=== PATIENT | male | born 1980 | race Caucasian/White ===

== ENCOUNTER 2018-01-01 20:06 | Outpatient (REF) | payer MEDICAID, SELFPAY ==
[2018-01-07 03:45] LABS: 2-OH-Ethyl-Flurazepam Negative ng/mL (Cutoff: 100); 7-NH-Clonazepam Negative ng/mL (Cutoff: 100); 7-NH-Flunitrazepam Negative ng/mL (Cutoff: 50); Alpha OH-Alprazolam Negative ng/mL (Cutoff: 100); Alpha-OH-Triazolam Negative ng/mL (Cutoff: 100); Benzodiazepines Interpretation Negative.; Lorazepam Negative ng/mL (Cutoff: 100); Temazepam Negative ng/mL (Cutoff: 100)
== END 2018-01-01 20:26 ==
LOC: NCHCN 20:06
PROVIDERS: PCP Family Medicine; Visit Provider Family Medicine
DX: F11.20 Opioid dependence, uncomplicated (principal)
CPT/HCPCS: 80346

== ENCOUNTER 2018-01-29 13:16 | Outpatient (REF) | payer MEDICAID, SELFPAY ==
[2018-02-01 03:53] LABS: 2-OH-Ethyl-Flurazepam Negative ng/mL (Cutoff: 100); 7-NH-Clonazepam Negative ng/mL (Cutoff: 100); 7-NH-Flunitrazepam Negative ng/mL (Cutoff: 50); Alpha OH-Alprazolam 112 ng/mL (Cutoff: 100); Alpha-OH-Triazolam Negative ng/mL (Cutoff: 100); Benzodiazepines Interpretation Positive.; Lorazepam Negative ng/mL (Cutoff: 100); Temazepam Negative ng/mL (Cutoff: 100)
== END 2018-01-29 13:36 ==
LOC: NCHCN 13:16
PROVIDERS: PCP Family Medicine; Visit Provider Family Medicine
DX: F11.20 Opioid dependence, uncomplicated (principal)
CPT/HCPCS: 80346

== ENCOUNTER 2018-04-02 13:42 | Outpatient (REF) | payer MEDICAID, SELFPAY ==
[2018-04-05 02:07] LABS: 2-OH-Ethyl-Flurazepam Negative ng/mL (Cutoff: 100); 7-NH-Clonazepam Negative ng/mL (Cutoff: 100); 7-NH-Flunitrazepam Negative ng/mL (Cutoff: 50); Alpha OH-Alprazolam Negative ng/mL (Cutoff: 100); Alpha-OH-Triazolam Negative ng/mL (Cutoff: 100); Benzodiazepines Interpretation Negative.; Lorazepam Negative ng/mL (Cutoff: 100); Temazepam Negative ng/mL (Cutoff: 100)
[2018-04-06 07:41] LABS: Amphetamine 401 ng/mL (Cutoff: 25); Amphetamines Interpretation Positive.; MDMA (Ecstasy) Negative ng/mL (Cutoff: 25); Methamphetamine Negative ng/mL (Cutoff: 25); Phentermine Negative ng/mL (Cutoff: 25); Pseudoephedrine/Ephedrine Negative ng/mL (Cutoff: 25)
== END 2018-04-02 14:02 ==
LOC: NCHCN 13:42
PROVIDERS: PCP Family Medicine; Visit Provider Family Medicine
DX: F11.20 Opioid dependence, uncomplicated (principal)
CPT/HCPCS: 80324; 80346

== ENCOUNTER 2018-12-11 15:29 | Inpatient (IN) | payer MEDICAID, SELFPAY ==
[2018-12-11 15:32] VITALS: BP 123/71; PULSE 111; RESP 20; TEMP 37.1; O2SAT 97
--- NOTE | 2018-12-11 15:49 | W.ED.GENAD ---
Discharge Plan Disposition Condition: Stable Discharge Details Chief Complaint: Cellulitis Admit Date/Time: 12/11/18 17:39 Admit Provider: Barrie Napier Attending Provider: Barrie Napier Primary Care Provider: Miguelina Allen ED Provider: Reva Garber Discharge Data Discharge Date/Time-TO BE ENTERED AT DEPARTURE: 12/11/18 18:02 Medical Decision Making <JAMEEL Hansen - Last Filed: 12/14/18 09:36> Patient is a 38-year-old male presenting today with chief complaint of cellulitis. Noted erythema and swelling to the left hand initially had a wound by week and a half ago and his symptoms are greatly progressed. Has been feeling febrile at home prior to arrival. Denies any chest pain or shortness of breath. Patient had streaking to the left axilla and circumferential swelling about the left hand and wrist. He is able to flex and extend all digits against resistance but range of motion is quite limited, this is likely associated with the severity of the swelling. Patient appears nontoxic. He is noted to be tachycardic rate of 111. Plan for labs, imaging and will begin the patient on vancomycin. At the end of my shift, care was transitioned to Dr. Garber labs, imaging pending. Discussed with patient that he will likely need admission for continued antibiotics <Reva Garber MD - Last Filed: 12/11/18 20:14> Julian Rosa is a 38 y/o man with history of opioid use disorder now on Suboxone presenting to the emergency department with right hand pain, redness, swelling, that began 1 week ago, gradually worsening and started on Keflex yesterday, worse since then signed out to me at time of shift change by Laly Stephens with labs, disposition pending. Please see her note for initial H&P. On my assessment, patient is well and nontoxic appearing. There is significant edema and erythema to the palmar and dorsal surface of the left hand extending through the left wrist, with lymphangitic streaking up the arm into the axilla. No crepitus, no skin necrosis. Patient has severe pain with active or passive ranging of the wrist and thumb. Essentially normal range of motion of the second through fifth digits. I have concern for significant cellulitis, possible septic arthritis, possible early sepsis. Doubt necrotizing fasciitis, will obtain x-rays for rule out gas. Awaiting labs, x-rays. Clindamycin ordered by Laly Stephens, concern for MRSA given skin wound over the radial aspect of the left wrist which is likely source of the infection, plan for vancomycin. I discussed patient presentation and my concern for possible septic arthritis with Dr. Jeffers of orthopedic surgery, Dr. Jeffers recommends admission, IV vancomycin, will consult. Patient admitted to Dr. Napier. Clinical Impression: cellulitis Disposition: [facility] inpatient Medical Records Medical records reviewed: Yes I reviewed the patient's medical records. Imaging Data Radiologic Study: Attestation: I personally reviewed and interpreted this imaging study as follows: Radiologist's impression: EXAM DATE/TIME: 12/11/2018 4:11 PM CLINICAL HISTORY: 38 years old, male; Other: Hand cellulitis TECHNIQUE: Imaging protocol: XR Left hand. Views: 3 or more views. COMPARISON: No relevant prior studies available. FINDINGS: Bones/joints: There is no fracture or dislocation. There is no erosive changes. Soft tissues: Soft tissue swelling of the hand. IMPRESSION: Marked soft tissue swelling. No acute bony injury. EXAM DATE/TIME: 12/11/2018 4:11 PM CLINICAL HISTORY: 38 years old, male; Other: Hand cellulitis TECHNIQUE: Imaging protocol: XR Left wrist. Views: 3 or more views. COMPARISON: No relevant prior studies available. FINDINGS: Bones/joints: No fracture or dislocation. No erosive changes. Soft tissues: Soft tissue swelling hand and wrist. IMPRESSION: No acute bony injury. Soft tissue swelling left hand and wrist. Lab Data Lab results reviewed: Yes I reviewed the patient's lab results. 12/11/18 17:04 Blood Blood Culture - Pending 12/11/18 16:35 Blood Blood Culture - Pending 12/11/18 16:05 Hand - Left Wound Culture - Pending 12/11/18 16:05 Hand - Left Gram Stain - Pending Laboratory Tests Range/Units 12/11/18 12/11/18 12/11/18 15:47 16:35 16:35 WBC (4.4-10.8) k/cumm 14.49 H RBC (4.50-6.00) m/cumm 4.41 L Hgb (13.5-17.5) g/dL 14.3 Hct (40.0-50.0) % 41.1 MCV (80-95) fL 93.2 MCH (27.0-33.0) pg 32.4 MCHC (32.0-36.0) g/dL 34.8 RDW (11.8-14.1) % 12.7 Plt Count (130-400) x1000/uL 267 MPV (8.0-11.0) fL 9.8 Immature Gran % 0.3 Neutrophils % 72.1 Lymphocytes % 16.1 Monocytes % 9.6 Eosinophils % 1.7 Basophils % 0.2 Absolute Neutrophils (1.2-6.7) k/cumm 10.45 H Absolute Lymphocytes (1.2-3.4) k/cumm 2.33 Absolute Monocytes (0.11-0.7) k/cumm 1.39 H Absolute Eosinophils (0.0-0.7) k/cumm 0.25 Absolute Basophils (0.0-0.2) k/cumm 0.03 ESR (0-15) mm/hr Sodium (136-145) mmol/L 137 Potassium (3.5-5.1) mmol/L 3.9 Chloride (98-107) mmol/L 99 Carbon Dioxide (21.0-32.0) mmol/L 26.2 Anion Gap (3-11) mmol/L 11.8 H BUN (7-18) mg/dL 12 Creatinine (0.70-1.30) mg/dL 0.98 Estimated GFR/1.73 m2 (mL/min/1.73m2) >= 60.00 Glucose (70-100) mg/dL 80 Lactate (0.6-1.4) mmol/L Calcium (8.5-10.1) mg/dL 8.9 Magnesium Cancelled Total Bilirubin (0.2-1.0) mg/dL 1.0 AST (15-37) U/L 124 H ALT (12-78) U/L 317 H Alkaline Phosphatase (46-116) U/L 149 H Troponin I Cancelled C-Reactive Protein (0.0-0.3) mg/dL Total Protein (6.4-8.2) g/dL 7.7 Albumin (3.4-5.0) g/dL 4.1 Range/Units 08/15/19 08/15/19 08/15/19 16:35 16:35 16:35 WBC (4.4-10.8) k/cumm RBC (4.50-6.00) m/cumm Hgb (13.5-17.5) g/dL Hct (40.0-50.0) % MCV (80-95) fL MCH (27.0-33.0) pg MCHC (32.0-36.0) g/dL RDW (11.8-14.1) % Plt Count (130-400) x1000/uL MPV (8.0-11.0) fL Immature Gran % Neutrophils % Lymphocytes % Monocytes % Eosinophils % Basophils % Absolute Neutrophils (1.2-6.7) k/cumm Absolute Lymphocytes (1.2-3.4) k/cumm Absolute Monocytes (0.11-0.7) k/cumm Absolute Eosinophils (0.0-0.7) k/cumm Absolute Basophils (0.0-0.2) k/cumm ESR (0-15) mm/hr 16 H Sodium (136-145) mmol/L Potassium (3.5-5.1) mmol/L Chloride (98-107) mmol/L Carbon Dioxide (21.0-32.0) mmol/L Anion Gap (3-11) mmol/L BUN (7-18) mg/dL Creatinine (0.70-1.30) mg/dL Estimated GFR/1.73 m2 (mL/min/1.73m2) Glucose (70-100) mg/dL Lactate (0.6-1.4) mmol/L 0.9 Calcium (8.5-10.1) mg/dL Magnesium Total Bilirubin (0.2-1.0) mg/dL AST (15-37) U/L ALT (12-78) U/L Alkaline Phosphatase (46-116) U/L Troponin I C-Reactive Protein (0.0-0.3) mg/dL 3.97 H Total Protein (6.4-8.2) g/dL Albumin (3.4-5.0) g/dL HPI <JAMEEL Hansen - Last Filed: 12/14/18 09:36> General Mode of arrival: ambulatory. Date/Time Provider Initiated Documentation: 12/11/18 15:30. Limitations to Documentation: no limitations. Information obtained by: patient and RN notes reviewed. HPI Narrative: Patient is a 48-year-old [id number] male presents today with chief complaint of left hand erythema and swelling. Reports that approximately a week and a half ago he cut the radial side of his wrist while washing dishes at work. Reports that since that time, he has had a low-level area of erythema. Reports over the past few days has began to progress and was seen by his primary care yesterday at which time he was begun on cephalexin. Reports that he was advised to seek care in the emergency department if symptoms worsen or worsen. Over the past 24 hours, patient has noted the entirety of the hand is become involved. States he has been feeling warm. Noting a red streak moving up his arm. Denies any chest pain, shortness of breath. No recent travel. Has been taking the Keflex as prescribed. Pain is exacerbated with movement, improves with rest. Patient has history of IV drug abuse but reports is been several years since he last used. Related Data Home Medications Medication Instructions Recorded Confirmed aspirin [Aspir 81] 81 mg PO DAILY 04/22/16 12/11/18 gabapentin 300 mg PO BID 04/22/16 12/11/18 trazodone 50 mg PO HS 04/22/16 12/11/18 buprenorphine-naloxone [Suboxone 8 8 mg SUBLINGUAL DAILY film 07/09/16 12/11/18 Mg-2 Mg Sl Film] citalopram [Celexa] 20 mg PO HS tab-cap 07/09/16 12/11/18 melatonin 5 mg PO HS 07/09/16 12/11/18 omeprazole magnesium [Prilosec Otc] 20 mg PO daily PRN 07/09/16 12/11/18 cephalexin 500 mg PO QID 12/11/18 12/11/18 ibuprofen [IBU-200] 400 mg PO Q6H PRN 12/11/18 12/11/18 Allergies Allergy/AdvReac Type Severity Reaction Status Date / Time No Known Allergies Allergy Unverified 12/11/18 15:34 General Stated Complaint: Cellulitis RANJAN: 3 Review of Systems <JAMEEL Hansen - Last Filed: 12/14/18 09:36> Constitutional Reports as per HPI, Reports chills, Reports fatigue, Reports fever(s), Denies headache(s) and Denies weakness ENT Denies headache(s) Cardiovascular Reports as per HPI Respiratory Reports as per HPI and Denies cough Musculoskeletal Reports as per HPI and Denies tingling Integumentary/Breasts Reports as per HPI, Reports erythema, Reports skin pain, Reports skin swelling and Reports wounds Neurologic Reports as per HPI, Denies headache(s), Denies tingling, Denies paresthesias and Denies weakness Endocrine Reports fatigue PFSH <JAMEEL Hansen - Last Filed: 12/14/18 09:36> Medical History Complex regional pain syndrome i of right lower limb (Inactive) 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 Sister No problems noted. Social History (Updated 12/11/18 @ 20:58 by Barrie Napier) Smoking/Tobacco Use Status: Current every day Tobacco Type: cigarettes Alcohol Intake: former Drug use: Current Sobriety Substance use type: marijuana Details: Former IV drug abuser of narcotics. Currently on Suboxone therapy through his primary care provider Do you feel safe at home: Yes Do you feel safe in your relationship?: Yes Exam <JAMEEL Hansen - Last Filed: 12/14/18 09:36> Const General: cooperative, healthy appearing, comfortable, no acute distress, well developed and well groomed Nutritional Appearance: average body habitus and well nourished Orientation: alert and awake Resp Effort & Inspection: normal respiratory effort, able to speak in complete sentences and no respiratory distress Auscultation: clear to auscultation bilaterally, no rales, no rhonchi and no wheezes Cardio Rate: regular rate Rhythm: regular rhythm Heart Sounds: S1 normal, S2 normal, no click, no gallops and no murmurs Skin General skin exam: erythema (To left hand circumferentially, streak to axilla) Wounds: wounds noted (1 cm in circumference superficial wound anterior radial wrist) Neuro General: alert and awake Cognition: normal cognition Speech: speech normal Gait: normal gait Motor: muscle tone normal throughout Sensory Exam: no sensory deficits noted Extrem Left upper extremity: normal capillary refill and wrist (Limited range of motion with extension); abnormal to inspection (Skin changes as noted above with severe swelling circumferentially about th) and ROM limited (Patient is able to flex and extend all digits against resistance) Psych Appearance: grossly normal and well kempt Mental Status: mental status grossly normal Speech and Movement: speech and movement normal Course <JAMEEL Hansen - Last Filed: 12/14/18 09:36> Vital Signs Temperature 37.1 C 12/11/18 15:32 Pulse 111 H 12/11/18 15:32 Respiratory Rate 20 12/11/18 15:32 Blood Pressure 123/71 12/11/18 15:32 Pulse Oximetry 97 12/11/18 15:32 Temperature 37.1 C 12/11/18 15:32 Temperature Source Temporal Artery Scan 12/11/18 15:32 Pulse 111 H 12/11/18 15:32 Respiratory Rate 20 12/11/18 15:32 Blood Pressure 123/71 12/11/18 15:32 Pulse Oximetry 97 12/11/18 15:32 Oxygen Delivery Method Room Air 12/11/18 15:32 Oxygen Flow Rate 0 12/11/18 15:32 Pain Level 7 12/11/18 15:32 Sign Out <JAMEEL Hansen - Last Filed: 12/14/18 09:36> Sign Out Data: Sign Out Comment: Care transitioned to Dr. Garber with labs and imaging pending. Last updated by Laly Stephens PA at 12/11/18 16:18
--- NOTE | 2018-12-11 16:08 | DI.RAD_ITS ---
SYMPTOM/DIAGNOSIS: HAND CELLULITIS LEFT HAND: 12/11 Three views were obtained. There is soft tissue swelling of the hand. No bony abnormality seen.
--- NOTE | 2018-12-11 16:08 | DI.RAD_ITS ---
SYMPTOM/DIAGNOSIS: WRIST CELLULITIS LEFT WRIST: 12/11/18 Three views were obtained. There is soft tissue swelling of the hand and wrist. No underlying bony abnormality seen.
[2018-12-11] MEDS: Normal Saline 1,000 ML 1000 ML IV ×2 (16:25→17:05)
[2018-12-11 16:50] LABS: Abs Immature Grans 0.04 k/cumm (0.0-0.09); Absolute Basophil Count 0.03 k/cumm (0.0-0.2); Absolute Eosinophil Count 0.25 k/cumm (0.0-0.7); Absolute Lymphocyte Count 2.33 k/cumm (1.2-3.4); Absolute Monocyte Count 1.39 k/cumm (0.11-0.7); Absolute Neutrophil Count 10.45 k/cumm (1.2-6.7); Basophils % 0.2; Eosinophils % 1.7; HCT 41.1 % (40.0-50.0); HGB 14.3 g/dL (13.5-17.5); Immature Grans % 0.3; Lymphocytes % 16.1; Mean Corp. HGB Concentration 34.8 g/dL (32.0-36.0); Mean Corpuscular Hemoglobin 32.4 pg (27.0-33.0); Mean Corpuscular Volume 93.2 fL (80-95); Mean Platelet Volume 9.8 fL (8.0-11.0); Monocytes % 9.6; Neutrophils % 72.1; Platelet Count 267 x1000/uL (130-400); RBC 4.41 m/cumm (4.50-6.00); RBC Distribution Width 12.7 % (11.8-14.1); White Blood Cell Count 14.49 k/cumm (4.4-10.8)
[2018-12-11 16:51] LABS: Lactate 0.9 mmol/L (0.6-1.4)
[2018-12-11] MEDS: CLINDAMYCIN 600 MG/50 ML BAG 100 MG IVPB (16:59)
[2018-12-11 17:08] LABS: ALT 317 U/L (12-78); AST 124 U/L (15-37); Albumin 4.1 g/dL (3.4-5.0); Alkaline Phosphatase 149 U/L (46-116); Anion Gap 11.8 mmol/L (3-11); BUN 12 mg/dL (7-18); CO2 26.2 mmol/L (21.0-32.0); CREATININE 0.98 mg/dL (0.70-1.30); Calcium 8.9 mg/dL (8.5-10.1); Chloride 99 mmol/L (98-107); Glucose 80 mg/dL (70-100); Potassium 3.9 mmol/L (3.5-5.1); Sodium 137 mmol/L (136-145); Total Protein 7.7 g/dL (6.4-8.2)
[2018-12-11] MEDS: HYDROmorphone 2 MG/ML VIAL 0.5 MG IVP (17:12)
[2018-12-11 17:24] VITALS: BP 141/85; PULSE 79; RESP 18; TEMP 37.4; O2SAT 100
[2018-12-11] MEDS: VANCOMYCIN 2,000 MG in Normal Saline 500 ML 250 MG IVPB (17:28)
[2018-12-11 17:36] LABS: C-Reactive Protein 3.97 mg/dL (0.0-0.3)
[2018-12-11 17:55] LABS: ESR 16 mm/hr (0-15)
[2018-12-11 18:03] VITALS: BP 141/85; PULSE 79; RESP 18; TEMP 37.4; O2SAT 100
[2018-12-11 18:18] VITALS: BP 150/96; PULSE 88; RESP 20; TEMP 36.7; O2SAT 99
--- NOTE | 2018-12-11 18:22 | DI.VRAD_ITS ---
EXAM: XR Left Hand EXAM DATE/TIME: 12/11/2018 4:11 PM CLINICAL HISTORY: 38 years old, male; Other: Hand cellulitis TECHNIQUE: Imaging protocol: XR Left hand. Views: 3 or more views. COMPARISON: No relevant prior studies available. FINDINGS: Bones/joints: There is no fracture or dislocation. There is no erosive changes. Soft tissues: Soft tissue swelling of the hand. IMPRESSION: Marked soft tissue swelling. No acute bony injury. Dictated and Authenticated by: Belem Allen MD. Ordering:CHERYL Ardon MD
--- NOTE | 2018-12-11 18:23 | DI.VRAD_ITS ---
EXAM: XR Left Wrist EXAM DATE/TIME: 12/11/2018 4:11 PM CLINICAL HISTORY: 38 years old, male; Other: Hand cellulitis TECHNIQUE: Imaging protocol: XR Left wrist. Views: 3 or more views. COMPARISON: No relevant prior studies available. FINDINGS: Bones/joints: No fracture or dislocation. No erosive changes. Soft tissues: Soft tissue swelling hand and wrist. IMPRESSION: No acute bony injury. Soft tissue swelling left hand and wrist. Dictated and Authenticated by: Belem Allen MD. Ordering:CHERYL Ardon MD
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
[2018-12-11] MEDS: CEFEPIME 2 GM in Normal Saline 100 ML IVPB (21:12)
[2018-12-11] MEDS: Normal Saline Flush 10 ML SYR IVP ×2 (21:12→21:28)
[2018-12-11] MEDS: Ketorolac 15 MG/ML VIAL IVP (21:28)
[2018-12-11] MEDS: Citalopram 20 MG TAB PO (22:23)
[2018-12-11] MEDS: Melatonin 3 MG TAB 6 MG PO (22:23)
[2018-12-11] MEDS: traZODone 50 MG TAB PO (22:23)
[2018-12-11] MEDS: Acetaminophen 325 MG TAB PO (22:23)
[2018-12-11 23:39] VITALS: BP 108/70; PULSE 90; RESP 16; TEMP 37.1; O2SAT 98
[2018-12-12] VITALS (11 sets, daily range): BP systolic 74–155; BP diastolic 31–71; PULSE 60–80; RESP 12–18; TEMP 36–37.2; O2SAT 95–98
[2018-12-12] MEDS: HYDROmorphone 2 MG/ML VIAL 1 MG IVP (00:02)
[2018-12-12] MEDS: Normal Saline 50 ML 200 ML (00:03)
[2018-12-12] MEDS: traMADol 50 MG TAB 100 MG PO ×2 (00:03→06:19)
[2018-12-12] MEDS: VANCOMYCIN 1,000 MG in Normal Saline 250 ML 250 MG IV (01:47)
[2018-12-12] MEDS: CEFEPIME 2 GM in Normal Saline 100 ML IVPB ×2 (03:30→12:34)
--- NOTE | 2018-12-12 03:49 | NUR.NOTE ---
Nursing Note: At approximately 2200, Patient rang call albert requesting to be disconnected from IV and that he was going to leave AMA and go to [facility] because he feels his pain is not being managed, he would rather sit at home in pain or go to another hospital where he would receive pain medication. Patient is upset and crying at this point grasping his arm and diaphoretic. Patient states he was told he only came here for drugs and feels like he is being stereotyped due his previous drug history. Patient is open about saying he has been clean for 12 years and does not understand why he is not getting anything more for pain. REYES Celestin came in the room as well to talk to patient. Patient became agreeable to plan of taking what was available and if no relief we would contact the doctor. Pain wass ultimately managed around 0000.
[2018-12-12] MEDS: Ketorolac 15 MG/ML VIAL IVP (06:19)
--- NOTE | 2018-12-12 07:49 | INITIAL_ITS ---
- If Service Date Differs Date of service: 12/12/18 Time of Service: 07:49 Care Management Initial Assess REASON FOR HOSPITALIZATION:: Septic arthritis of left wrist PAST MEDICAL HISTORY/PAST SURGICAL HISTORY:: Medical History: Complex regional pain syndrome i of right lower limb (Inactive). 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 Surgical History: Excision, Lesion (02/10/16) PREVIOUS FUNCTIONAL STATUS/SOCIAL/FAMILY SUPPORTS:: Adrian lives alone in a single family home in [facility]. He has an eleven year old son that is very important to him. 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 He is independent with all care and activities. CURRENT FUNCTIONAL STATUS:: Adrian was sitting up in bed with his left hand and arm wrapped and elevated on pillows. He had surgery this morning on his left wrist which is infected. Adrian stated that he intends to leave by 3pm since he has his son this weekend and does not want to miss any time with him. ADVANCE DIRECTIVES:: none on file at [facility] Has patient been provided with information about the portal?: No Did the patient sign up for the portal?: No CODE STATUS:: Full Code INSURANCE COVERAGE / FINANCIAL ISSUES:: Medicaid CURRENT HOME/COMMUNITY SERVICES/EQUIPMENT:: none PRIMARY CARE PHYSICIAN:: Miguelina Allen POTENTIAL DISCHARGE NEEDS:: IV AB PATIENT/FAMILY EDUCATION NEEDS:: Discharge plan, limitations, follow up plan, Ask Me Three TRANSPORTATION:: via bicycle which he has in his room with him PLAN:: Adrian is receiving IV antibiotics for septic arthritis in his left wrist. Ideally he would require 6 weeks of IV AB but is refusing to stay in the hospital. Although he intends to sign out AMA, arrangements have been made for him to come to the infusion center to complete treatment. He will follow up with his PCP and discharge plan of care.
[2018-12-12] MEDS: Bupivacaine 0.5% Pres-Free 30 ML VIAL (07:51)
[2018-12-12] MEDS: Bupivacaine LIPOSOME/PF 133 MG/10 ML VIAL IJ (07:51)
[2018-12-12 09:45] LABS: Abs Immature Grans 0.02 k/cumm (0.0-0.09); Absolute Basophil Count 0.02 k/cumm (0.0-0.2); Absolute Eosinophil Count 0.22 k/cumm (0.0-0.7); Absolute Lymphocyte Count 1.21 k/cumm (1.2-3.4); Absolute Monocyte Count 0.75 k/cumm (0.11-0.7); Basophils % 0.2; Eosinophils % 2.4; HCT 36.7 % (40.0-50.0); HGB 12.3 g/dL (13.5-17.5); Immature Grans % 0.2; Lymphocytes % 13.1; Mean Corp. HGB Concentration 33.5 g/dL (32.0-36.0); Mean Corpuscular Hemoglobin 32.1 pg (27.0-33.0); Mean Corpuscular Volume 95.8 fL (80-95); Monocytes % 8.1; Platelet Count 213 x1000/uL (130-400); RBC 3.83 m/cumm (4.50-6.00); RBC Distribution Width 12.9 % (11.8-14.1); White Blood Cell Count 9.22 k/cumm (4.4-10.8)
[2018-12-12 09:56] LABS: Absolute Neutrophil Count 7.01 k/cumm (1.2-6.7)
[2018-12-12 09:59] LABS: ALT 224 U/L (12-78); AST 92 U/L (15-37); Albumin 2.8 g/dL (3.4-5.0); Alkaline Phosphatase 111 U/L (46-116); Anion Gap 6.7 mmol/L (3-11); BUN 12 mg/dL (7-18); Bilirubin, Total 0.6 mg/dL (0.2-1.0); C-Reactive Protein 5.64 mg/dL (0.0-0.3); CO2 25.3 mmol/L (21.0-32.0); CREATININE 0.96 mg/dL (0.70-1.30); Calcium 7.8 mg/dL (8.5-10.1); Chloride 108 mmol/L (98-107); Creatine Kinase 40 U/L (39-308); Glucose 100 mg/dL (70-100); Potassium 4.3 mmol/L (3.5-5.1); Sodium 140 mmol/L (136-145); Total Protein 5.7 g/dL (6.4-8.2)
[2018-12-12] MEDS: Lactated Ringers 1,000 ML 30 ML IV (10:00)
[2018-12-12] MEDS: Normal Saline 1,000 ML 150 ML IV ×2 (11:19)
--- NOTE | 2018-12-12 11:42 | ROE_ITS ---
DATE OF PROCEDURE: December 12, 2018 PREOPERATIVE DIAGNOSIS: Septic arthritis left wrist. POSTOPERATIVE DIAGNOSIS: Septic arthritis left wrist. PROCEDURE: Arthrotomy left wrist with irrigation and debridement of the wrist. ANESTHESIA: General, supplemented with a left cervical block, Maurilio Rowan CRNA SURGEON: Reinaldo Jeffers M.D. INDICATIONS: This is a 38-year-old white male who went to the Emergency Room yesterday with increasi ng swelling, erythema and pain in his left hand and wrist over the course of the last week to two wee ks. He was thought to have a septic arthritis of his wrist. I was consulted and performed an aspira tion of his left wrist. I aspirated 2 cc's of anne pus, confirming the diagnosis of a septic arthri tis. The patient was started on IV antibiotics and I recommended formal incision and drainage of his wrist as optimum treatment of the infection. The risks and complications of the procedure were expl ained to the patient in detail preoperatively. Because of his poor veins and because he is on chroni c Suboxone therapy, it was felt that he would benefit from a cervical block for postop pain. PROCEDURE: The patient was taken to the Operating Room on 12/12/18. He was placed supine on the oper ating table and a general anesthetic was administered. A cervical block was then performed. A proxi mal tourniquet was applied to the left upper extremity and the left hand, wrist and forearm were prep ped and draped free in the usual sterile fashion. The left upper extremity was exsanguinated by elev ation for a minute and the tourniquet was inflated to 325 mmHg. A longitudinal incision was made on the dorsum of the left wrist between the third and fourth extenso r compartments. The incision was carried down through the subcu. The extensor pollicis longus tendo n was identified and retracted radially. The common extensor tendons in the fourth compartment were retracted ulnarward. I incised the dorsal capsule and anne pus poured out of the wrist joint. Hype rtrophic synovium on the dorsum of the wrist were removed with a rongeur down to healthy tissue. The wrist joint was then copiously irrigated with saline solution and then irrigated with Betadine and s ivy solution until there was no more purulent material and the tissues looked clean. I left the wr ist capsule joint open, put a Rosalind drain in the depths of the wound and tucked it in radial to the scaphoid. I then simply approximated the skin edges with interrupted #3-0 nylon sutures. Because of the large amount of swelling and erythema on the dorsum of the hand, I needed to make sure that there weren't more pockets of purulent material. I planned on making a longitudinal incision b etween the index and middle metacarpals and the little and ring finger metacarpals. I made the first incision between the little and ring finger metacarpals; the incision was about 2.5 inches in length . I incised through the skin. The extensor tendons were identified. There was only clear fluid daniel t poured out of the wound. By milking the dorsum of the dorsum of the hand in an ulnar direction, I was able to push out a large amount of tissue fluid. I felt that this was simply reactive fluid and not anne infection. I didn't feel I needed to make another incision on the dorsum of the hand. I i rrigated that wound with saline solution and approximated the skin edges with interrupted #3-0 nylon sutures. The incisions were dressed with Xeroform gauze, sterile gauze 4x4's and wrapped with a 2-in ch Cling bandage. I then made a large compressive dressing with fluff gauze 4x4's between the finger s and wrapped with a Kerlix bandage. I applied a volar fiberglass splint, held in place with a 3-in ch ALICIA bandage. The tourniquet was released. There was immediate visible circulation to the fingers . The patient's general anesthesia was reversed without complication. Estimated blood loss was < 10 cc's. The patient was discharged to the recovery room in good condition.
[2018-12-12] MEDS: Gabapentin 300 MG CAP PO (12:33)
[2018-12-12] MEDS: Ketorolac 30 MG/ML VIAL IVP (12:33)
[2018-12-12] MEDS: Omeprazole 20 MG CAPCR PO (12:33)
[2018-12-12] MEDS: Normal Saline Flush 10 ML SYR IVP ×2 (12:35→14:47)
[2018-12-12] MEDS: Buprenorphine/Naloxone 8 mg/2 mg FILM 1 EACH SL (13:15)
--- NOTE | 2018-12-12 15:33 | NUR.NOTE ---
Nursing Note: 1500- pt left AMA with belongings and bicycle. pt agreed to come back to infusion for antibiotic treatment at 1600.
--- NOTE | 2018-12-12 15:42 | PDOC.CMDIS ---
- If Service Date Differs Date of service: 12/12/18 Time of Service: 15:43 LACE Index Scoring Tool - Questions: Length of Stay (in days): 1 Acuity (Admit via E.D.?): Yes E.D. Visits: 1 - Answers: Total Score: 5 Risk of Readmission: Low Risk Care Management Discharge Reason for Hospitalization: Septic arthritis of left wrist Discharge Plan: Adrian received IV antibiotics for septic arthritis in his left wrist. Ideally he would require 6 weeks of IV AB but is refusing to stay in the hospital. Although he intends to sign out AMA, arrangements have been made for him to come to the infusion center to complete treatment. He will follow up with his PCP and discharge plan of care.He will ride his bicycle home. Patient/Family Education Needs: Discharge plan, limitations, follow up plan, Ask Me Three Services Needed at Discharge: Infusion Therapy
--- NOTE | 2018-12-12 16:20 | W.PM.DS.N ---
Date of service: 12/12/18 Time of Service: 16:21 DS: Diagnosis Discharge Diagnosis (1) Septic arthritis of wrist, left: Status: Acute (2) Elevated transaminase level: Status: Acute Discharge Plan Disposition Patient Disposition: AGAINST MEDICAL ADVICE Condition: Stable Discharge Details Chief Complaint: Cellulitis Reason For Visit: LEFT ARM CELLULITIS Admit Date/Time: 12/11/18 17:39 Admit Provider: Barrie Napier Attending Provider: Barrie Napier Primary Care Provider: Miguelina Allen ED Provider: Reva Garber Hospital Course Hospital Course: Mr Rosa is a 38 year old male who unfortunately left AMA today after a brief admission to [facility] on 12/11/18 for septic arthritis of L wrist. He did undergo arthrocenthesis by Dr Jeffers on 12/11/18, which was suggestive of septic arthritis, was initiated on vancomycin/cefepime empirically and admitted to hospitalist service. He underwent an arthrotomy of the Left wrist with irrigation and debridement of the wrist by Dr Jeffers on 12/12/18. Before culture results were available, the patient left AMA. He had a midline placed during his surgery into his RUE. Because the patient agrees to follow up with the infusion center, we have changed his antibiotics to daily daptomycin/ceftriaxone. I have made contact with Dr Fuentes who is insulation batting machine operator for Dr Allen and either he or Dr Allen will follow the culture results in the outpatient setting, changing antibiotics as appropriate. The patient verbalized understanding that untreated septic wrist could lead to loss of hand and possibly and chose to leave AMA regardless. Home Meds and New Rx's Prescriptions: No Action citalopram [Celexa] 20 MG tablet 20 mg PO HS RF: 0 Prilosec OTC 20 MG tablet,delayed release (DR/EC) 20 mg PO daily PRN RF: 0 melatonin 5 MG tablet 5 mg PO HS RF: 0 buprenorphine-naloxone [Suboxone] 1 EACH film 8 mg Sublingual DAILY RF: 0 trazodone 50 MG tablet 50 mg PO HS RF: 0 aspirin [Aspir-81] 81 MG tablet,delayed release (DR/EC) 81 mg PO DAILY RF: 0 gabapentin 300 MG capsule 300 mg PO BID RF: 0 cephalexin 500 mg Capsule 500 mg PO QID RF: 0 ibuprofen [IBU-200] 200 mg Tablet 400 mg PO Q6H PRNRF: 0 Discharge Instructions Referrals: Reinaldo Jeffers MD [ [facility] STAFF PHYSICIAN] - Royer Fuentes [ [facility] STAFF PHYSICIAN] - Discharge Data Discharge Date/Time-TO BE ENTERED AT DEPARTURE: 12/12/18 15:00 Exam Narrative Exam Narrative: General: middle-aged male, appears mildly anxious, older than his stated age, A&Ox3 HEENT: EOMI, MMM Heart: RRR, no m/r/g Lungs: CTAB GI: abdomen is soft, nontender, nondistended Extremities: LUE dressed, c/d/i; no e/c/c BLE's DS: Data Vitals/I&O Vitals and I&O: Vital Signs Temperature 36.5 C 12/12/18 13:04 Temperature Source Tympanic 12/12/18 13:04 Pulse 73 12/12/18 13:04 Pulse Rhythm Regular 12/12/18 07:30 Respiratory Rate 18 12/12/18 13:04 Respiratory Effort Non-Labored 12/12/18 07:30 Respiratory Depth Normal 12/12/18 07:30 Respiratory Pattern Normal 12/12/18 07:30 Blood Pressure 155/66 H 12/12/18 13:04 Pulse Oximetry 96 12/12/18 13:04 Respiratory End-tidal CO2 28 12/12/18 10:15 Oxygen Delivery Method Room Air 12/12/18 13:04 Oxygen Flow Rate 0 12/12/18 13:04 Pain Level 5 12/12/18 13:04 Intake & Output 12/11/18 12/12/18 12/12/18 23:59 11:59 23:59 Intake Total 2660 / 2660 1350 / 1350 Output Total Balance 2660 / 2660 1340 / 1340 Weight 66.224 kg 67.1 kg Intake: IV 2660 / 2660 1350 / 1350 Output: Estimated Blood Loss Other: Comment Patient voided independantly, refused hat pt voided independently Emesis Description None Voiding Methods Toilet Completed studies during hospitalization [Text1]: XR L hand/wrist: Three views were obtained. There is soft tissue swelling of the hand. No bony abnormality seen. Pending studies at discharge: blood and arthrocenthesis culture results Labs on day of discharge: Labs from last 24 hours 12/12/18 12/12/18 12/12/18 09:14 09:14 09:14 WBC 9.22 D RBC 3.83 L Hgb 12.3 L Hct 36.7 L MCV 95.8 H MCH 32.1 MCHC 33.5 RDW 12.9 Plt Count 213 MPV 10.0 Immature Gran % 0.2 Neutrophils % 76.0 Lymphocytes % 13.1 Monocytes % 8.1 Eosinophils % 2.4 Basophils % 0.2 Absolute Neutrophils 7.01 H Absolute Lymphocytes 1.21 Absolute Monocytes 0.75 H Absolute Eosinophils 0.22 Absolute Basophils 0.02 ESR Sodium 140 Potassium 4.3 Chloride 108 H Carbon Dioxide 25.3 Anion Gap 6.7 BUN 12 Creatinine 0.96 Estimated GFR/1.73 m2 >= 60.00 Glucose 100 Lactate Calcium 7.8 L Total Bilirubin 0.6 AST 92 H ALT 224 H Alkaline Phosphatase 111 Creatine Kinase 40 C-Reactive Protein 5.64 H Total Protein 5.7 L Albumin 2.8 L Hepatitis A IgM Ab Pending Hep Bs Antigen Pending Hep B Core Total Ab Pending Hepatitis C Antibody Pending 12/11/18 12/11/18 12/11/18 16:35 16:35 16:35 WBC RBC Hgb Hct MCV MCH MCHC RDW Plt Count MPV Immature Gran % Neutrophils % Lymphocytes % Monocytes % Eosinophils % Basophils % Absolute Neutrophils Absolute Lymphocytes Absolute Monocytes Absolute Eosinophils Absolute Basophils ESR 16 H Sodium Potassium Chloride Carbon Dioxide Anion Gap BUN Creatinine Estimated GFR/1.73 m2 Glucose Lactate 0.9 Calcium Total Bilirubin AST ALT Alkaline Phosphatase Creatine Kinase C-Reactive Protein 3.97 H Total Protein Albumin Hepatitis A IgM Ab Hep Bs Antigen Hep B Core Total Ab Hepatitis C Antibody 12/11/18 12/11/18 16:35 16:35 WBC 14.49 H RBC 4.41 L Hgb 14.3 Hct 41.1 MCV 93.2 MCH 32.4 MCHC 34.8 RDW 12.7 Plt Count 267 MPV 9.8 Immature Gran % 0.3 Neutrophils % 72.1 Lymphocytes % 16.1 Monocytes % 9.6 Eosinophils % 1.7 Basophils % 0.2 Absolute Neutrophils 10.45 H Absolute Lymphocytes 2.33 Absolute Monocytes 1.39 H Absolute Eosinophils 0.25 Absolute Basophils 0.03 ESR Sodium 137 Potassium 3.9 Chloride 99 Carbon Dioxide 26.2 Anion Gap 11.8 H BUN 12 Creatinine 0.98 Estimated GFR/1.73 m2 >= 60.00 Glucose 80 Lactate Calcium 8.9 Total Bilirubin 1.0 AST 124 H ALT 317 H Alkaline Phosphatase 149 H Creatine Kinase C-Reactive Protein Total Protein 7.7 Albumin 4.1 Hepatitis A IgM Ab Hep Bs Antigen Hep B Core Total Ab Hepatitis C Antibody 12/11/18 17:04 Blood Blood Culture - Pending 12/11/18 16:35 Blood Blood Culture - Pending Preliminary micro results at discharge 12/11/18 19:44 Body Fluid Culture - Preliminary Bursa 12/11/18 16:05 Wound Culture - Preliminary Hand - Left 12/11/18 17:04 Blood Culture - Pending Blood 12/11/18 16:35 Blood Culture - Pending Blood [facility] Medical History Complex regional pain syndrome i of right lower limb (Inactive) 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 Sister No problems noted. Social History (Updated 12/11/18 @ 20:58 by Barrie Napier) Smoking/Tobacco Use Status: Current every day Tobacco Type: cigarettes Alcohol Intake: former Drug use: Current Sobriety Substance use type: marijuana Details: Former IV drug abuser of narcotics. Currently on Suboxone therapy through his primary care provider Do you feel safe at home: Yes Do you feel safe in your relationship?: Yes
[2018-12-15 10:56] LABS: Hepatitis A Antibody IgM Negative (NEGAT); Hepatitis B Core Antibody Negative (NEGAT); Hepatitis B surface Ag Negative (NEGAT); Hepatitis C Ab w Rflx HCV PCR Reactive (NEGAT)
== END 2018-12-12 15:00 | disposition left against medical advice (07) | DRG 513 ==
LOC: ER 17:54 → MS 12-12 05:29
PROVIDERS: Orthopaedic Surgery; Physician Assistant; Admitting Provider Internal Medicine; Emergency Provider Student in an Organized Health Care Education/Training Program; PCP Family Medicine; Visit Provider Internal Medicine
PROC: 0RBP0ZZ Excision of Left Wrist Joint, Open Approach (ICD-10-PCS; CPT 25105; principal; 2018-12-12 07:30)
DX: M00.232 Other streptococcal arthritis, left wrist (principal); F11.20 Opioid dependence, uncomplicated; L03.114 Cellulitis of left upper limb; B95.4 Other streptococcus as the cause of diseases classified elsewhere; R74.0 Nonspecific elevation of levels of transaminase and lactic acid dehydrogenase [LDH]; G89.18 Other acute postprocedural pain; Z53.21 Procedure and treatment not carried out due to patient leaving prior to being seen by health care provider; F17.210 Nicotine dependence, cigarettes, uncomplicated; F12.10 Cannabis abuse, uncomplicated
CPT/HCPCS: 25105; 10140; 36415; 80053; 82550; 85652; 86704; 86709; 86803; 87040; 87077; 87340; 96361; 96365; 96367; 96375; 99223; 99238; 99285; 73110; 73130; 83605; 83735; 84484; 85025; 86140; 87070; 87186; 87205; 87522; J1100; J1885; J2250; J2405; L3650

== ENCOUNTER 2018-12-27 02:12 | Outpatient (RCR) | payer MEDICAID, SELFPAY ==
[2018-12-12] MEDS: cefTRIAXone 2 GM/50 ML BAG IVPB (16:38)
[2018-12-12] MEDS: Normal Saline Flush 10 ML SYR IVP ×2 (16:38→17:35)
[2018-12-12 16:39] VITALS: BP 134/66; PULSE 77; RESP 18; TEMP 36.7; O2SAT 97
[2018-12-13] MEDS: Normal Saline Flush 10 ML SYR IVP (14:40)
[2018-12-13] MEDS: cefTRIAXone 2 GM/50 ML BAG IVPB (14:40)
[2018-12-14] MEDS: cefTRIAXone 2 GM/50 ML BAG IVPB (13:52)
[2018-12-14] MEDS: Normal Saline Flush 10 ML SYR IVP (13:52)
[2018-12-15] MEDS: cefTRIAXone 2 GM/50 ML BAG IVPB (12:30)
[2018-12-15] MEDS: Normal Saline Flush 10 ML SYR IVP (12:35)
[2018-12-16] MEDS: cefTRIAXone 2 GM/50 ML BAG IVPB (13:40)
[2018-12-16] MEDS: Normal Saline Flush 10 ML SYR IVP (13:46)
[2018-12-17] MEDS: Normal Saline Flush 10 ML SYR IVP (09:01)
[2018-12-17] MEDS: cefTRIAXone 2 GM/50 ML BAG IVPB (09:01)
[2018-12-18] MEDS: cefTRIAXone 2 GM/50 ML BAG IVPB (10:43)
[2018-12-18] MEDS: Normal Saline Flush 10 ML SYR IVP (10:44)
[2018-12-19] MEDS: cefTRIAXone 2 GM/50 ML BAG IVPB (11:45)
[2018-12-19] MEDS: Normal Saline Flush 10 ML SYR IVP (11:48)
[2018-12-21] MEDS: cefTRIAXone 2 GM/50 ML BAG IVPB (13:19)
[2018-12-21] MEDS: Normal Saline Flush 10 ML SYR IVP (13:20)
[2018-12-22] MEDS: cefTRIAXone 2 GM/50 ML BAG IVPB (14:01)
[2018-12-22] MEDS: Normal Saline Flush 10 ML SYR IVP (14:02)
[2018-12-23] MEDS: cefTRIAXone 2 GM/50 ML BAG IVPB (14:20)
[2018-12-23] MEDS: Normal Saline Flush 10 ML SYR IVP (14:59)
[2018-12-24] MEDS: cefTRIAXone 2 GM/50 ML BAG IVPB (14:14)
[2018-12-24] MEDS: Normal Saline Flush 10 ML SYR IVP (14:15)
[2018-12-25] MEDS: cefTRIAXone 2 GM/50 ML BAG IVPB (11:00)
[2018-12-25] MEDS: Normal Saline Flush 10 ML SYR IVP (11:05)
[2018-12-26] MEDS: cefTRIAXone 2 GM/50 ML BAG IVPB (12:55)
[2018-12-26] MEDS: Normal Saline Flush 10 ML SYR IVP (12:56)
== END 2018-12-27 23:59 | disposition home or self-care (01) ==
LOC: INF 02:12
PROVIDERS: PCP Family Medicine; Visit Provider Internal Medicine
DX: M00.232 Other streptococcal arthritis, left wrist (principal); F11.20 Opioid dependence, uncomplicated; L03.114 Cellulitis of left upper limb; B95.4 Other streptococcus as the cause of diseases classified elsewhere
CPT/HCPCS: 96365; 96372; J0878

== ENCOUNTER 2018-12-30 00:47 | Outpatient (RCR) | payer MEDICAID, SELFPAY ==
[2018-12-28] MEDS: cefTRIAXone 2 GM/50 ML BAG IVPB (14:17)
[2018-12-28] MEDS: Normal Saline Flush 10 ML SYR IVP (14:18)
[2018-12-30] MEDS: cefTRIAXone 2 GM/50 ML BAG IVPB (14:12)
[2018-12-30] MEDS: Normal Saline Flush 10 ML SYR IVP (14:12)
== END 2019-01-26 23:59 | disposition home or self-care (01) ==
LOC: INF 00:47
PROVIDERS: PCP Family Medicine; Visit Provider Internal Medicine
DX: M00.232 Other streptococcal arthritis, left wrist (principal); L03.114 Cellulitis of left upper limb; B95.4 Other streptococcus as the cause of diseases classified elsewhere
CPT/HCPCS: 96365

== ENCOUNTER 2018-12-31 15:15 | Outpatient (REF) | payer MEDICAID, SELFPAY ==
[2019-01-03 17:10] LABS: Gabapentin, Urine Negative
[2019-01-04 05:17] LABS: Codeine Negative ng/mL (Cutoff: 25); Dihydrocodeine Negative ng/mL (Cutoff: 25); Hydrocodone Negative ng/mL (Cutoff: 25); Hydromorphone Negative ng/mL (Cutoff: 25); Morphine Negative ng/mL (Cutoff: 25); Naloxone 125 ng/mL (Cutoff: 25); Norhydrocodone Negative ng/mL (Cutoff: 25); Noroxycodone Negative ng/mL (Cutoff: 25); Noroxymorphone Negative ng/mL (Cutoff: 25); Opiates Interpretation Positive.
[2019-01-05 20:47] LABS: Norbuprenorphine 171.1 ng/mL
== END 2018-12-31 15:35 ==
LOC: NCHCN 15:15
PROVIDERS: PCP Family Medicine; Visit Provider Family Medicine
DX: F11.20 Opioid dependence, uncomplicated (principal)
CPT/HCPCS: 80307; 80361

== ENCOUNTER 2019-01-14 19:51 | Outpatient (REF) | payer MEDICAID, SELFPAY ==
[2019-01-17 16:37] LABS: Gabapentin, Urine 14.6 ug/mL
== END 2019-01-14 20:11 ==
LOC: NCHCN 19:51
PROVIDERS: PCP Family Medicine; Visit Provider Family Medicine
DX: F11.20 Opioid dependence, uncomplicated (principal)
CPT/HCPCS: 80307

== ENCOUNTER 2019-06-12 20:19 | Emergency (ER) | payer MEDICAID, SELFPAY ==
[2019-06-12 20:18] VITALS: BP 131/90; PULSE 91; RESP 16; TEMP 37.1; O2SAT 96
--- NOTE | 2019-06-12 20:27 | W.ED.GENAD ---
Discharge Plan Disposition Patient Disposition: HOME Condition: Stable Discharge Details Chief Complaint: Laceration Clinical Impression: Laceration of eyebrow, left Primary Care Provider: Miguelina Allen ED Provider: Annie Raymundo Home Meds and New Rx's Prescriptions: Continued citalopram [Celexa] 20 MG tablet 20 mg PO HS RF: 0 Prilosec OTC 20 MG tablet,delayed release (DR/EC) 20 mg PO daily PRN RF: 0 melatonin 5 MG tablet 5 mg PO HS RF: 0 buprenorphine-naloxone [Suboxone] 1 EACH film 8 mg Sublingual BID RF: 0 trazodone 50 MG tablet 50 mg PO HS RF: 0 aspirin [Aspir-81] 81 MG tablet,delayed release (DR/EC) 81 mg PO DAILY RF: 0 gabapentin 300 MG capsule 300 mg PO BID RF: 0 cephalexin 500 mg Capsule 500 mg PO QID RF: 0 ibuprofen [IBU-200] 200 mg Tablet 400 mg PO Q6H PRNRF: 0 Discharge Instructions Instructions: Facial Laceration (ED) Additional Instructions: Follow up with primary care provider in 3-5 days. Return to ED sooner if any worsening or concerns. Increase oral fluids. Please take Tylenol or Ibuprofen with food every 4-6 hours as needed for pain and swelling. Do not pick or scrub at glue, it will fall off on its own within 4 to 6 days. Return or be seen sooner for any signs of infection, redness, swelling red streaks or signs of infection. Also return for any signs of head injury nausea, vomiting confusion or worsening headache. Referrals: Miguelina Allen MD [Primary Care Provider] - Medical Decision Making 38-year-old male presents with left eyebrow laceration after trip and fall onto ice. Denies LOC. He is alert and oriented x4 upon arrival. He is not on any blood thinners. No nausea or blurry vision. He reports being up-to-date on his tetanus vaccination. Laceration was cleaned with chlorhexidine, and closed with skin adhesive, wound well approximated bleeding controlled. Instructed patient on home care verbalized understanding. HPI General Mode of arrival: EMS. Date/Time Provider Initiated Documentation: 06/12/19 20:27. Limitations to Documentation: no limitations. Information obtained by: patient. HPI Narrative: 38-year-old male presents with a left eyelid laceration after a trip and fall onto the ice. He denies any LOC, no nausea vomiting. No blurry vision. He does have a 1 cm laceration noted to his left eyebrow. There is mild amount of active bleeding. He reports being up-to-date with tetanus shot. No other complaints, no neck pain or back pain. He is alert and oriented x4 upon arrival. Related Data Home Medications Medication Instructions Recorded Confirmed aspirin [Aspir-81] 81 mg PO DAILY 04/22/16 12/16/18 gabapentin 300 mg PO BID 04/22/16 12/16/18 trazodone 50 mg PO HS 04/22/16 12/16/18 Prilosec OTC 20 mg PO daily PRN 07/09/16 12/16/18 buprenorphine-naloxone [Suboxone] 8 mg SUBLINGUAL BID film 07/09/16 06/12/19 citalopram [Celexa] 20 mg PO HS tab-cap 07/09/16 12/16/18 melatonin 5 mg PO HS 07/09/16 12/16/18 cephalexin 500 mg PO QID 12/11/18 12/16/18 ibuprofen [IBU-200] 400 mg PO Q6H PRN 12/11/18 12/16/18 Allergies Allergy/AdvReac Type Severity Reaction Status Date / Time No Known Allergies Allergy Unverified 12/16/18 08:55 General Stated Complaint: Laceration RANJAN: 4 Review of Systems Narrative: Constitutional: Negative for weight loss, alert and oriented, normal body habitus, appears comfortable. HEENT: Denies headaches, blurry vision, nasal discharge, sore throat, trouble swallowing. Laceration noted to his left upper eyebrow. Chest: Denies chest pain, palpitations, irregular rhythm, hypertension. Respiratory: Denies Shortness of breath, cough, hemoptysis. GI: Denies abdominal pain, nausea, vomiting, diarrhea, constipation. : Denies dysuria, hematuria, flank pain, rectal bleeding. Neuro: Denies dizziness, blurry vision, weakness, syncope, headache or facial numbness. Hematologic: Denies easy bruising, intolerance to heat or cold, hair loss. [facility] Family History (Updated 12/11/18 @ 21:00 by Barrie Napier) Father Lung cancer Alcoholism Mother No problems noted. Sister No problems noted. Social History (Updated 12/11/18 @ 20:58 by Barrie Napier) Smoking/Tobacco Use Status: Current every day Tobacco Type: cigarettes Alcohol Intake: former Drug use: Current Sobriety Substance use type: marijuana Details: Former IV drug abuser of narcotics. Currently on Suboxone therapy through his primary care provider Do you feel safe at home: Yes Do you feel safe in your relationship?: Yes Exam Narrative Exam Narrative: Constitutional: Allert and oriented x3. Appears stated age. Normal body habitus. Head: Normocephalic, laceration noted to his left eyebrow. Approximately 1 cm in length. No underlying bony abnormality palpated, no crepitus or step-offs.. Eyes: Pupils PERRLA, Red reflex noted, EOM's intact. Eyelids symmetrical withour lesions, discharge, or swelling. ENT: Bilateral TM's WNL, External ear normal to inspection, no mastoid TTP, swelling, or erythema, Nasal turbinates WNL, no nasal discharge. Normal dentition, Posterior pharynx WNL, no exudate. Chest: RRR, Normal S1, S2, distal pulses intact. Resp: Lungs clear to auscultation bilaterally, no wheezes, rales, or rhonchi. Musculoskeletal: Normal gait, 5/5 strength to all four extremities. Skin: No suspicious rashes or lesions. Capillary refill ?2 sec. Neurologic: Cranial nerves II-XII intact. Alert and oriented x 3. DTR's intact. Hematologic/Lymphatic: No ecchymosis, no lymphadenopathy. Course Vital Signs Vital signs: Vital Signs Temperature 37.1 C 06/12/19 20:18 Pulse 91 H 06/12/19 20:18 Respiratory Rate 16 06/12/19 20:18 Blood Pressure 131/90 06/12/19 20:18 Pulse Oximetry 96 06/12/19 20:18 Temperature 37.1 C 06/12/19 20:18 Temperature Source Skin 06/12/19 20:18 Pulse 91 H 06/12/19 20:18 Respiratory Rate 16 06/12/19 20:18 Respiratory Effort 06/12/19 20:22 Blood Pressure 131/90 06/12/19 20:18 Blood Pressure Position Supine 06/12/19 20:18 Pulse Oximetry 96 06/12/19 20:18 Oxygen Delivery Method Room Air 06/12/19 20:18 Oxygen Flow Rate 0 02/14/20 20:18 Pain Level 7 06/12/19 20:18 Procedures Laceration Laceration 1: Site: face (Left eyebrow) Side (If applicable): left Size (cm): 1 Description: linear Depth: simple, single layer Pre-repair: irrigated extensively Skin layer closed with: other (Skin adhesive)
--- NOTE | 2019-06-12 20:28 | NUR.NOTE ---
BIBA [facility] with c/o left eyelid lac. pt states slipped on ice and fell. Denies LOC. Approx 1cm lac, bleeding controlled on arrival. Pt denies visual disturbances, nausea, [place], neck pain.
== END 2019-06-12 20:50 | disposition home or self-care (01) ==
LOC: ER 21:20
PROVIDERS: Emergency Provider Registered Nurse Emergency; PCP Family Medicine
DX: S01.112A Laceration without foreign body of left eyelid and periocular area, initial encounter (principal); W00.0XXA Fall on same level due to ice and snow, initial encounter
CPT/HCPCS: 12011

== ENCOUNTER 2019-09-10 01:57 | Outpatient (CLI) | payer MEDICAID, SELFPAY ==
[2019-09-10 11:24] LABS: HCT 40.8 % (40.0-50.0); HGB 14.1 g/dL (13.5-17.5); Mean Corp. HGB Concentration 34.6 g/dL (32.0-36.0); Mean Corpuscular Hemoglobin 33.1 pg (27.0-33.0); Mean Corpuscular Volume 95.8 fL (80-95); Mean Platelet Volume 9.8 fL (8.0-11.0); Platelet Count 249 x1000/uL (130-400); RBC 4.26 m/cumm (4.50-6.00); RBC Distribution Width 12.5 % (11.8-14.1); White Blood Cell Count 10.65 k/cumm (4.4-10.8)
[2019-09-10 12:12] LABS: ALT 23 U/L (16-63); AST 27 U/L (15-37); Albumin 3.8 g/dL (3.4-5.0); Alkaline Phosphatase 86 U/L (46-116); Anion Gap 7.4 mmol/L (3-11); BUN 8 mg/dL (7-18); Bilirubin, Total 0.4 mg/dL (0.2-1.0); CO2 26.6 mmol/L (21.0-32.0); CREATININE 1.01 mg/dL (0.70-1.30); Chloride 102 mmol/L (98-107); Glucose 156 mg/dL (74-106); Sodium 136 mmol/L (136-145); Total Protein 6.8 g/dL (6.4-8.2)
[2019-09-11 10:37] LABS: HBs Antibody, Quant <3.1 mIU/mL (See Note); Hepatitis B Surface Ab Negative (See Note)
[2019-09-11 10:59] LABS: Hep B Core Antibody Negative (Negative)
[2019-09-11 11:01] LABS: Hepatitis C Ab w Rflx HCV PCR Reactive (Negative)
[2019-09-11 11:07] LABS: HIV-1/2 Ag & Ab Screen Negative (Negative)
[2019-09-11 12:04] LABS: Hep A Total Ab w Rflx IgM Positive (Negative)
[2019-09-11 14:12] LABS: Hepatitis Be Antigen Negative (Negative)
[2019-09-14 10:58] LABS: ALT 17 U/L (7-55); ActiTest Grade A0; ActiTest Interpretation no activity; ActiTest Score 0.04; Alpha-2-Macroglobulin 153 mg/dL (100 - 280); Apoliprotein A1 118 mg/dL (>=120); Bilirubin, Total 0.4 mg/dL (<=1.2); FibroTest Interpretation no fibrosis; FibroTest Score 0.08; FibroTest Stage F0; GGT 10 U/L (8 - 61); Haptoglobin 129 mg/dL (30 - 200)
[2019-09-14 14:28] LABS: HCV RNA Qualitative Undetected (Undetected)
[2019-09-15 09:16] LABS: Hep A Antibody IgM Negative (Negative)
[2019-09-15 17:57] LABS: HCV Genotype Undetected (Undetected)
== END 2019-09-10 02:17 ==
PROVIDERS: PCP Family Medicine; Visit Provider Family Medicine
DX: B19.20 Unspecified viral hepatitis C without hepatic coma (principal); Z11.4 Encounter for screening for human immunodeficiency virus [HIV]
CPT/HCPCS: 36415; 80053; 81596; 85027; 86704; 86706; 86709; 86803; 87389; 87522; 87350; 87521

== ENCOUNTER 2020-01-06 19:36 | Outpatient (REF) | payer MEDICAID, SELFPAY ==
[2020-01-12 11:51] LABS: 2-OH-Ethyl-Flurazepam Negative ng/mL (Cutoff: 100); 7-NH-Clonazepam 511 ng/mL (Cutoff: 100); 7-NH-Flunitrazepam Negative ng/mL (Cutoff: 50); Alpha OH-Alprazolam 223 ng/mL (Cutoff: 100); Alpha-OH-Triazolam Negative ng/mL (Cutoff: 100); Benzodiazepines Interpretation Positive.; Lorazepam Negative ng/mL (Cutoff: 100); Temazepam Negative ng/mL (Cutoff: 100)
== END 2020-01-06 19:56 ==
LOC: NCHCN 19:36
PROVIDERS: PCP Family Medicine; Visit Provider Family Medicine
DX: F11.20 Opioid dependence, uncomplicated (principal)
CPT/HCPCS: 80346

== ENCOUNTER 2020-02-25 15:01 | Outpatient (REF) | payer MEDICAID, SELFPAY ==
[2020-03-02 10:05] LABS: 2-OH-Ethyl-Flurazepam Negative ng/mL (Cutoff: 100); 7-NH-Flunitrazepam Negative ng/mL (Cutoff: 50); Alpha OH-Alprazolam Negative ng/mL (Cutoff: 100); Alpha-OH-Triazolam Negative ng/mL (Cutoff: 100); Benzodiazepines Interpretation Positive.; Lorazepam Negative ng/mL (Cutoff: 100); Temazepam 678 ng/mL (Cutoff: 100)
[2020-03-03 06:54] LABS: EDDP-by GC-MS Negative; Methadone Interpretation Positive.; Methadone-by GC-MS 1739 ng/mL
== END 2020-02-25 15:21 ==
LOC: NCHCN 15:01
PROVIDERS: PCP Family Medicine; Visit Provider Family Medicine
DX: F11.20 Opioid dependence, uncomplicated (principal)
CPT/HCPCS: 80346; 80358

== ENCOUNTER 2020-03-16 20:02 | Outpatient (REF) | payer MEDICAID, SELFPAY ==
[2020-03-20 12:05] LABS: Amphetamine 218 ng/mL (Cutoff: 25); Amphetamines Interpretation Positive.; MDA (Ecstasy Metabolite) Negative ng/mL (Cutoff: 25); MDMA (Ecstasy) Negative ng/mL (Cutoff: 25); Methamphetamine 348 ng/mL (Cutoff: 25); Phentermine Negative ng/mL (Cutoff: 25); Pseudoephedrine/Ephedrine Negative ng/mL (Cutoff: 25)
== END 2020-03-16 20:22 ==
LOC: NCHCN 20:02
PROVIDERS: PCP Family Medicine; Visit Provider Family Medicine
DX: F11.20 Opioid dependence, uncomplicated (principal)
CPT/HCPCS: 80324

== ENCOUNTER 2020-03-30 11:40 | Outpatient (REF) | payer MEDICAID, SELFPAY ==
[2020-04-04 13:43] LABS: Amphetamine 349 ng/mL (Cutoff: 25); Amphetamines Interpretation Positive.; MDA (Ecstasy Metabolite) Negative ng/mL (Cutoff: 25); MDMA (Ecstasy) Negative ng/mL (Cutoff: 25); Methamphetamine 1276 ng/mL (Cutoff: 25); Phentermine Negative ng/mL (Cutoff: 25); Pseudoephedrine/Ephedrine Negative ng/mL (Cutoff: 25)
== END 2020-03-30 12:00 ==
LOC: NCHCN 11:40
PROVIDERS: PCP Family Medicine; Visit Provider Family Medicine
DX: F11.20 Opioid dependence, uncomplicated (principal)
CPT/HCPCS: 80324

== ENCOUNTER 2020-08-24 11:25 | Outpatient (REF) | payer MEDICAID, SELFPAY ==
[2020-08-26 14:03] LABS: COVID-19 RT-PCR UVMMC Result Negative (Negative)
== END 2020-08-24 11:26 | disposition home or self-care (01) ==
LOC: NCHCN 11:25
PROVIDERS: PCP Family Medicine; Visit Provider Family Medicine
DX: Z20.822 Contact with and (suspected) exposure to COVID-19 (principal); R11.10 Vomiting, unspecified; R68.83 Chills (without fever)
CPT/HCPCS: U0003

== ENCOUNTER 2021-02-08 13:34 | Outpatient (REF) | payer MEDICAID, SELFPAY ==
[2021-02-18 00:11] LABS: 2-OH-Ethyl-Flurazepam Negative ng/mL (Cutoff: 10); 7-NH-Clonazepam 457 ng/mL (Cutoff: 10); 7-NH-Flunitrazepam Negative ng/mL (Cutoff: 10); Alpha OH-Alprazolam Negative ng/mL (Cutoff: 10); Alpha-OH Midazolam Negative ng/mL (Cutoff: 10); Alpha-OH-Triazolam Negative ng/mL (Cutoff: 10); Alprazolam Negative ng/mL (Cutoff: 10); Benzodiazepines Interpretation Positive.; Chlordiazepoxide Negative ng/mL (Cutoff: 10); Clobazam Negative ng/mL (Cutoff: 10); Clonazepam 26 ng/mL (Cutoff: 10); Diazepam Negative ng/mL (Cutoff: 10); Flurazepam Negative ng/mL (Cutoff: 10); Lorazepam Negative ng/mL (Cutoff: 10); Midazolam Negative ng/mL (Cutoff: 10); N-Desmethylclobazam Negative ng/mL (Cutoff: 10); Prazepam Negative ng/mL (Cutoff: 10); Temazepam 85 ng/mL (Cutoff: 10); Triazolam Negative ng/mL (Cutoff: 10); Zolpidem Carboxylic acid Negative ng/mL (Cutoff: 10)
== END 2021-02-08 13:35 | disposition home or self-care (01) ==
LOC: NCHCN 13:34
PROVIDERS: PCP Family Medicine; Visit Provider Family Medicine
DX: F11.20 Opioid dependence, uncomplicated (principal)
CPT/HCPCS: 80346

== ENCOUNTER 2021-03-13 13:25 | Outpatient (CLI) | payer MEDICAID, SELFPAY ==
--- NOTE | 2021-03-13 | DI.US_ITS ---
Exam(s) US LOWER EXTREMITY VENOUS RT EXAM: US LOWER EXTREMITY VENOUS RT CLINICAL HISTORY: RT CALF PAIN, M79.661, ? DVT TECHNIQUE: Grayscale, color, and doppler imaging of the deep venous system of the right lower extrem ity was performed. COMPARISON: US US OR ANESTHESIA from 12/12/2018 FINDINGS: There is no evidence of intraluminal thrombus and there is normal compression and augmentation demons trated within the common femoral vein, femoral vein, and popliteal vein. In the ipsilateral calf the interrogated veins also exhibit normal compression/ augmentation properti es. Mild edema is noted in the right calf. The ipsilateral saphenofemoral junction is patent. There is a lymph node in the right groin measuring 12 x 4 x 13 millimeters, slightly prominent. IMPRESSION: 1. No evidence of DVT in the right lower extremity. 2. Other findings as above. DATA REPOSITORY:
== END 2021-03-13 13:45 ==
PROVIDERS: PCP Family Medicine; Visit Provider Family Medicine
DX: M79.661 Pain in right lower leg (principal); R59.0 Localized enlarged lymph nodes
CPT/HCPCS: 93971

== ENCOUNTER 2021-04-05 11:59 | Outpatient (REF) | payer MEDICAID, SELFPAY ==
[2021-04-05 16:41] LABS: ALT 16 U/L (16-63); AST 16 U/L (15-37); Albumin 4.2 g/dL (3.4-5.0); Alkaline Phosphatase 72 U/L (46-116); Anion Gap 9.2 mmol/L (3-11); BUN 7 mg/dL (7-18); Bilirubin, Total 0.2 mg/dL (0.2-1.0); CO2 27.8 mmol/L (21.0-32.0); CREATININE 0.9 mg/dL (0.70-1.30); Calcium 8.8 mg/dL (8.5-10.1); Chloride 100 mmol/L (98-107); Glucose 89 mg/dL (74-106); HCT 40.1 % (40.0-50.0); HGB 13.5 g/dL (13.5-17.5); MCH 32.6 pg (27.0-33.0); MCHC 33.7 % (32.0-36.0); MCV 96.9 fL (80-95); MPV 11.5 fL (8.0-11.0); Platelet Count 240 10^3/uL (130-400); Potassium 3.8 mmol/L (3.5-5.1); RBC 4.14 10^6/uL (4.36-5.78); RDW 12.2 % (11.8-14.1); RDW-SD 43.9 fL; Sodium 137 mmol/L (136-145); Total Protein 7.2 g/dL (6.4-8.2); WBC 9.66 10^3/uL (4.4-10.8)
[2021-04-06 12:23] LABS: Myeloperoxidase Ab IgG <0.2 U; Proteinase 3 Ab (PR3) <0.2 U
[2021-04-06 15:38] LABS: ANA Interpretation Negative (Negative)
[2021-04-10 12:12] LABS: Factor V Leiden(R506Q) Mut Negative (Negative)
== END 2021-04-05 12:00 | disposition home or self-care (01) ==
LOC: NCHCN 11:59
PROVIDERS: PCP Family Medicine; Visit Provider Family Medicine
DX: I77.89 Other specified disorders of arteries and arterioles (principal); T33.99XA Superficial frostbite of other sites, initial encounter
CPT/HCPCS: 80053; 81241; 85027; 85306; 86157; 87116; 82595; 83516; 85303; 86038; 86147

== ENCOUNTER 2022-02-07 18:52 | Outpatient (REF) | payer MEDICAID, SELFPAY ==
[2022-02-07 20:03] LABS: ALT 32 U/L (16-63); AST 25 U/L (15-37); Albumin 4.3 g/dL (3.4-5.0); Alkaline Phosphatase 72 U/L (46-116); Bilirubin, Total 0.3 mg/dL (0.2-1.0); Calculated LDL 111 mg/dL (<100); Cholesterol 186 mg/dL (<200); HDL Cholesterol 41 mg/dL (40-60); Total Protein 7.4 g/dL (6.4-8.2); Triglyceride 171 mg/dL (<150)
[2022-02-07 20:11] LABS: Bilirubin, Direct 0.1 mg/dL (0.0-0.2)
== END 2022-02-07 18:53 | disposition home or self-care (01) ==
LOC: NCHCN 18:52
PROVIDERS: PCP Family Medicine; Visit Provider Family Medicine
DX: B35.1 Tinea unguium (principal); Z79.899 Other long term (current) drug therapy
CPT/HCPCS: 80061; 80076

== ENCOUNTER 2023-06-12 17:35 | Outpatient (REF) | payer MEDICAID, SELFPAY ==
[2023-06-18 19:32] LABS: 2-OH-Ethyl-Flurazepam Negative ng/mL (Cutoff: 10); 7-NH-Clonazepam 89 ng/mL (Cutoff: 10); 7-NH-Flunitrazepam Negative ng/mL (Cutoff: 10); Alpha OH-Alprazolam Negative ng/mL (Cutoff: 10); Alpha-OH Midazolam Negative ng/mL (Cutoff: 10); Alpha-OH-Triazolam Negative ng/mL (Cutoff: 10); Alprazolam Negative ng/mL (Cutoff: 10); Benzodiazepines Interpretation Positive.; Chlordiazepoxide Negative ng/mL (Cutoff: 10); Clobazam Negative ng/mL (Cutoff: 10); Clonazepam Negative ng/mL (Cutoff: 10); Diazepam Negative ng/mL (Cutoff: 10); Flurazepam Negative ng/mL (Cutoff: 10); Lorazepam Negative ng/mL (Cutoff: 10); Midazolam Negative ng/mL (Cutoff: 10); N-Desmethylclobazam Negative ng/mL (Cutoff: 10); Prazepam Negative ng/mL (Cutoff: 10); Temazepam 80 ng/mL (Cutoff: 10); Triazolam Negative ng/mL (Cutoff: 10); Zolpidem Carboxylic acid Negative ng/mL (Cutoff: 10)
== END 2023-06-12 17:36 | disposition home or self-care (01) ==
LOC: NCHCN 17:35
PROVIDERS: PCP Family Medicine; Visit Provider Family Medicine
DX: F11.20 Opioid dependence, uncomplicated (principal)
CPT/HCPCS: 80346

== ENCOUNTER 2023-12-18 23:43 | Outpatient (REF) | payer MEDICAID, SELFPAY ==
--- OUTSIDE RECORDS SUMMARY | 2023-12-18 23:53 | XMS_ITS | Encounter Summary ---
Author Organization [facility] Address [address] [place] [address] Care Team Providers Care Group Underwriter Name Role Phone Unavailable Primary Care Provider Unavailabl e Encounter Details Date Type Department Care Team (Latest Contact Info) Description 05/12/2007 11:19 EST - 05/12/2007 11:59 EST Hospital Encounter [facility] - Other [address] [place] [address] Royer Kline MD [address] [place] [address] Discharge Disposition: Home or Self Care Social History Tobacco Use Types Packs/Day Years Used Date Smoking Tobacco: Never Assessed Sex and Gender Information Value Date Recorded Sex Assigned at Not on file Gender Identity Not on file Sexual Orientation Not on file documented as of this encounter Discharge Disposition Disposition Code Departure Means Destination Home or Self Care documented in this encounter Plan of Treatment Not on file documented as of this encounter Visit Diagnoses Not on filedocumented in this encounter
--- OUTSIDE RECORDS SUMMARY | 2023-12-18 23:53 | XMS_ITS | Encounter Summary ---
Author Organization [facility] Address [address] [place] [address] Care Team Providers Care Unix Consultant Name Role Phone Unknown, Provider Primary Care Provider [phone] Encounter Details Date Type Department Care Team (Late st Contact Info) Description 08/25/2020 Lab Requisition [facility] Pathology & Laboratory Medicine - [facility] [address] [place] [place], [place] [id number] Outr Resulting Lab, Provider Social History Tobacco Use Types Packs/Day Years Used Date Smoking Tobacco: Never Assessed Interpersonal Safety Answer Date Record ed Physically Hurt Never 11/29/2019 Verbally Threaten Not on file 11/29/2019 Sex and Gender Information Value Date Recorded Sex Assigned at Not on file Gender Identity Not on file Sexual Orientation Not on file documented as of this encounter Plan of Treatment Not on file documented as of this encounter Procedures Procedure Name Priority Date/Time Associated Diagnosis Comments ZZCOVID-19 TEST [facility] PCR Today 08/24/2020 10:41 EDT COVID-19 TESTING Routine 08/24/2020 10:4 1 EDT documented in this encounter Results * COVID-19 TEST [facility] PCR (08/24/2020 10:41 EDT) Swab ENTIRE NASOPHARYNX / Unknown 08/24/2020 10:41 EDT 08/25/2020 16:58 EDT Provider Outr Resulting Lab MICROBIOLOGY - GENERAL ORDERABLES [facility] [address] [place] [address] * COVID-19 TESTING (08/24/2020 10:41 EDT) COVID-19 rt-PCR Result Negative Negative 08/26/2020 13:56 EDT [facility] Comment: This test has not been FDA cleared or approved. This test has been authorized by FDA under an EUA for use by authorized laboratories. This test has been authorized only for detection of nucleic acid from 2019-nCoV, not for any other viruses or pathogens. This test is only authorized for the duration of the declaration that circumstances exist justifying the authorization of emergency use of in vitro diagnostic tests for detection and/or diagnosis of 2019-nCoV under section 564(b)(1) of Act, 21 U.S.C ?? 360bbb-3(b) (1), unless the authorization is terminated or revoked sooner. Negative results do not preclude 2019-nCoV infection and should not be used as the sole basis for treatment or other patient management decisions. Negative results must be combined with clinical observations, patient history, and epidemiological information. Testing was performed using the mireya SARS-CoV-2 assay ([employer] on the Mireya 6800 System Performing Lab Mireya 68[address] [facility] 08/26/2020 13:56 EDT [facility] Swab 08/24/2020 10:4 1 EDT 08/25/2020 16:58 EDT Provider Outr Resulting Lab MICROBIOLOGY - GENERAL ORDERABLES [facility] [address] [place] [address] documented in this encounter Visit Diagnoses Not on filedocumented in this encounter Care Teams Unix Consultant Relationship Specialty Start Date End Date Unknown, Provider, PCP - General 03/05/15 documented as of this encounter
--- OUTSIDE RECORDS SUMMARY | 2023-12-18 23:53 | XMS_ITS | Clinical Summary ---
Author Organization [facility] Address [address] [place] [address] Care Team Providers Care Bdc Manager Name Role Phone Unknown, Provider Primary Care Provider [phone] Social History Tobacco Use Types Packs/Day Years Used Date Smoking Tobacco: Never Assessed Interpersonal Safety Answer Date Record ed Physically Hurt Never 11/29/2019 Verbally Threaten Not on file 11/29/2019 Sex and Gender Information Value Date Recorded Sex Assigned at Not on file Gender Identity Not on file Sexual Orientation Not on file Plan of Treatment Health Maintenance Due Date Last Done Comments Hepatitis B Vaccine (1 of - 19+ 3-dose series) 2000 COVID-19 Vaccine (2022-2 4 season) 2022 Hepatitis C Screen Completed 09/10/2019, 0 09/10/2019, 05/12/2007 Procedures Procedure Name Priority Date/Time Associated Diagnosis Comments HEPATITIS C AB W REFLEX TO HCV RNA BY PCR Routine 09/10/2019 11:10 EDT from Last 3 Months or Most Recently Relevant to Health Maintenance Results * (ABNORMAL) HEPATITIS C AB W REFLEX TO HCV RNA BY PCR (09/10/2019 11:10 EDT) Hep C Antibody Reactive(A ) Negative 09/11/2019 10:57 EDT [facility] Comment: Supplemental testing for HCV RNA is ordered to rule out active HCV infection. Blood VENOUS BLOOD / Unknown 09/10/2019 11:10 EDT 09/10/2019 16:24 EDT Provider Outr Resulting Lab CHEMISTRY & BLOOD GAS ORDERABLES [facility] [address] [place] [address] from Last 3 Months or Most Recently Relevant to Health Maintenance Care Teams Bdc Manager Relationship Specialty Start Date End Date Unknown, Provider, PCP - General 03/05/15
--- OUTSIDE RECORDS SUMMARY | 2023-12-18 23:53 | XMS_ITS | Clinical Summary ---
Author Organization [facility] Address [facility] [address] [place] [address] Care Team Providers Care Civil Preparedness Officer Name Role Phone Miguelina Allen MD Primary Care Provider [phone] Allergies No known active allergies Medications Medication Sig Dispensed Refills Start Date End Date Status oxyCODONE (ROXICODONE) 10 mg Tablet Take 10 mg by mouth every 6 hours as needed. Active gabapentin (NEURONTIN) 300 mg Capsule Take 300 mg by mouth 2 times daily. Will increase to 3x/day st. 02/23 Active ketorolac (TORADOL) 10 mg Tablet Take 10 mg by mouth every 6 hours as needed for Pain. Active SUBOXONE 8-2 mg Film 0 03/06/2016 Acti ve SUBOXONE 2-0.5 mg Film 0 10/04/2015 Active oxyCODONE-acetaminop hen (PERCOCET) 5-325 mg Tablet TAKE 2 TABLETS BY MOUTH DAILY EVERY 8 HOURS NEEDED FOR SEVERE PAIN DUE TO ANKLE ULCER 0 02/17/2016 Active predniSONE (DELTASONE) 20 mg Tablet 0 03/12/2016 Active sulfamethoxazole-tri methoprim (BACTRIM DS) 800-160 mg Tablet take 1 tablet by mouth twice a day 0 01/16/2016 Active traZODone (DESYREL) 50 mg Tablet take 1 tablet by mouth at bedtime 0 02/14/2016 Active terbinafine (LAMISIL) 250 mg Tablet One tablet by mouth once daily on a full stomach 30 tablet 03/20/2016 Active Active Problems Problem Noted Date Diagnosed Date Skin necrosis 02/23/2016 IV drug abuse 02/23/2016 Overview (02/23/2016): History of IV drug use Clean for last 9 years Social History Tobacco Use Types Packs/Day Years Used Date Smoking Tobacco: Former Cigarettes Q uit: 02/13/2016 Tobacco Cessation:Ready to Q uit: No Sex and Gender Information Value Date Recorded Sex Assigned at Not on file Gender Identity Not on file Sexual Orientation Not on file Last Filed Vital Signs Vital Sign Reading Time Taken Comments Blood Pressure 131/72 02/23/2016 1:12 PM EDT Pulse 111 02/23/2016 1:12 PM EDT Temperature 36.6 ??C (97.9 ??F) 01/23/2016 10:40 AM E DT Respiratory Rate 18 01/23/2016 1:50 PM EDT Oxygen Saturation 100% 01/23/2016 1:50 PM EDT Inhaled Oxygen Concentration - - Weight 53.5 kg (118 lb) 02/23/2016 1:12 PM EDT Height 172.7 cm (5' 8) 02/23/2016 1:12 PM EDT Body Mass Index 17.94 02/23/2016 1:12 PM EDT Plan of Treatment Health Maintenance Due Date Last Done Comments HIV screen 07/29/1999 Hepatitis C Screening 07/29/1999 Lipid Screening 07/29/1999 Hepatitis B vaccine (0-59 yrs) (1) 2000 Tdap adult 2000 Tetanus vaccine 2000 Covid-19 Vaccine (1 - 2022-24 season) 2022 Influenza (Flu) vaccine (1 o f 1 - Influenza standard series) 12/29/2023 Care Teams Civil Preparedness Officer Relationship Specialty Start Date End Date Miguelina Allen MD [address] [place] [address] PCP - General 09/02/13
--- OUTSIDE RECORDS SUMMARY | 2023-12-18 23:53 | XMS_ITS | Encounter Summary ---
Author Organization [facility] Address [address] [place] [address] Care Team Providers Care Tax Accountant Name Role Phone Unknown, Provider Primary Care Provider [phone] Encounter Details Date Type Department Care Team (Late st Contact Info) Description 02/10/2016 Results Only [facility] [phone] Barbara Kirk, DO [address] [place] [address] Social History Tobacco Use Types Packs/Day Years Used Date Smoking Tobacco: Never Assessed Sex and Gender Information Value Date Recorded Sex Assigned at Not on file Gender Identity Not on file Sexual Orientation Not on file documented as of this encounter Plan of Treatment Not on file documented as of this encounter Procedures Procedure Name Priority Date/Time Associated Diagnosis Comments SURGICAL PATHOLOGY Routine 02/10/2016 8:18 EDT documented in this encounter Results * SURGICAL PATHOLOGY (02/10/2016 8:18 EDT) Pathology Report: SURGICAL PATHOLOGY REPORT Reports generated via electronic interface contain original data; however they are lacking the format of the original report. Caution should be taken when reading/interpreting unformatted reports. Name: ? JULIAN ROSA ? Accession #: ? [id number] ? : ? 1980 (Age: 35) ??M ? Collect Date: ? 02/10/2016 ? Location: ? [facility] ? Receive Date: ? 02/11/2016 ? Provider: BARBARA KIRK DO Copy to: VERONICA DANG MD ? Final Pathologic Diagnosis: SKIN OF ANKLE, RIGHT, EXCISION: - Epidermal ulceration with associated intimal and medial hyperplasia of blood vessels. ??See comment. Comment: Multiple levels of the biopsy have been reviewed. ??There is no evidence of a neoplasm. ??There is no evidence of vasculitis. ??Some of the larger blood vessels show intimal and medial hyperplasia, but no definitive thromboemboli are noted. The characteristic hyalinization seen in the context of atrophic jonathan is not noted. This case has been shown in intradepartmental consultation. ??(Dr. Pino)/n Document reviewed and electronically signed by: LITA PINO MD Report ??Date: 02/17/2016 14:56 By the signature above, the attending physician certifies that he/she has personally conducted a gross and/or microscopic examination of the described specimens and rendered or confirmed the above diagnosis. Specimen(s) Received: Right ankle ulcer Clinical History: Right ankle ulcer; additional history obtained from office: bilateral ulcers near ankles Gross Description: ? Received in formalin labelled with proper patient identification (initials B, D) and R ankle ulcer bx is an oriented elliptical excision of light dukes skin with a jazlyn at one tip which is arbitrarily designated as the 12 o'clock position (1.5 cm from 12 o'clock to 6 o'clock, 0.6 cm from 3 o'clock to 9 o'clock, and is excised to a depth of 0.9 cm). There is a red-brown ulcer at the 12 o'clock tip that measures 0.4 x 0.4 cm. Adjacent to this, the skin surface is dukes-white and pearly. The 3 o'clock aspect is blue inked and the 9 o'clock aspect is black inked. The specimen is serially sectioned from 12 o'clock to 6 o'clock and is entirely submitted as follows: BLOCK DEL TORO 1- ??12 o'clock tip reverse en face 2- ??central sections 3- ??6 o'clock tip reverse en face JAMEEL Trevino (ASCP) 02/13/2016 8:47 AM End of Report [facility] 02/10/2016 8:18 EDT 02/11/2016 8:18 EDT Barbara Kirk DO PATHOLOGY ORDERABLES [facility] [address] [place] [address] documented in this encounter Visit Diagnoses Not on filedocumented in this encounter Care Teams Tax Accountant Relationship Specialty Start Date End Date Unknown, Provider, PCP - General 03/05/15 documented as of this encounter
--- OUTSIDE RECORDS SUMMARY | 2023-12-18 23:53 | XMS_ITS | Encounter Summary ---
Author Organization [facility] Address [address] [place] [address] Care Team Providers Care Sow Farm Barn Technician Name Role Phone Unknown, Provider Primary Care Provider [phone] Encounter Details Date Type Department Care Team (Late st Contact Info) Description 09/10/2019 Lab Requisition [facility] Pathology & Laboratory Medicine - [facility] [address] [place], [place] [address] Outr Resulting Lab, Provider Social History Tobacco [...] Procedure Name Priority Date/Time Associated Diagnosis Comments HOLD SST Today 09/10/2019 11:10 EDT HOLD SST Today 09/10/2019 11:10 EDT HIV 1/2 ANTIGEN AND ANTIBODY, 4TH GENERATION Today 09/10/2019 11:10 EDT documented in this encounter Results * HOLD SST (09/10/2019 11:10 EDT) Hold Hold 09/10/2019 17:16 EDT [facility] Blood VENOUS BLOOD / Unknown 09/10/2019 11:10 EDT 09/10/2019 16:10 EDT Provider Outr Resulting Lab LAB INFO SER VICE AND SUPPORT & PHONE RESULT [facility] [address] [place] [address] * HOLD SST (09/10/2019 11:10 EDT) Hold Hold 09/10/2019 17:16 EDT [facility] Blood VENOUS BLOOD / Unknown 09/10/2019 11:10 EDT 09/10/2019 16:10 EDT Provider Outr Resulting Lab LAB INFO SER VICE AND SUPPORT & PHONE RESULT Performing Organization Address [facility] Co de Phone Number [facility] [address] [place] [address] * HIV 1/2 ANTIGEN AND ANTIBODY, 4TH GENERATION (09/10/2019 11:10 EDT) HIV 1 and 2 Antibody/p24 Antigen, 4th Generation Negative Negative 09/11/2019 11:02 EDT [facility] Comment: If acute HIV-1 infection is suspected in a high risk ??patient, submit plasma specimen for HIV-1 RNA quantitation test. Fourth Generation assay performed on the Siemens Centaur. Blood VENOUS BLOOD / Unknown 09/10/2019 11:10 EDT 09/10/2019 16:09 EDT Provider Outr Resulting Lab IMMUNOLOGY A ND SEROLOGY ORDERABLES Performing Organization Address [facility] Co de Phone Number [facility] [address] [place] [address] documented in this encounter Visit Diagnoses Not on filedocumented in this encounter Care Teams Sow Farm Barn Technician Relationship Specialty Start Date End Date Unknown, Provider, PCP - General 03/05/15 documented as of this encounter
--- OUTSIDE RECORDS SUMMARY | 2023-12-18 23:53 | XMS_ITS | Encounter Summary ---
Author Organization [facility] Address [facility] [place] [address] Care Team Providers Care Chief Radiology Name Role Phone Miguelina Allen MD Primary Care Provider [phone] Encounter Details Date Type Department Care Team (Late st Contact Info) Description 03/16/2021 Orders Only [place] [address] Deepika Dailey, MANAGER ENVIRONMENTAL AFFAIRS [facility] [place] [address] Ulcer of finger, unspecified ulcer stage Social History Tobacco Use Types Packs/Day Years Used Date Smoking Tobacco: Former Cigarettes Q uit: 02/13/2016 Sex and Gender Information Value Date Recorded Sex Assigned at Not on file Gender Identity Not on file Sexual Orientation Not on file documented as of this encounter Plan of Treatment Not on file documented as of this encounter Visit Diagnoses Diagnosis Ulcer of finger, unspecified ulcer stage documented in this encounter Care Teams Chief Radiology Relationship Specialty Start Date End Date Miguelina Allen MD [address] [place], [place] [id number] PCP - General 09/02/13 documented as of this encounter
--- OUTSIDE RECORDS SUMMARY | 2023-12-18 23:53 | XMS_ITS | Referral Summary ---
Author Organization [facility] Address [address] [place] [address] Care Team Providers Care Project Development Manager Name Role Phone Unknown, Provider Primary Care Provider [phone] Social History Tobacco Use Types Packs/Day Years Used Date Smoking Tobacco: Never Assessed Interpersonal Safety Answer Date Record ed Physically Hurt Never 11/29/2019 Verbally Threaten Not on file 11/29/2019 Sex and Gender Information Value Date Recorded Sex Assigned at Not on file Gender Identity Not on file Sexual Orientation Not on file Plan of Treatment Not on file Procedures Procedure Name Priority Date/Time Associated Diagnosis Comments HEPATITIS C AB W REFLEX TO HCV RNA BY PCR Routine 09/10/2019 11:10 EDT from Last 3 Months or Most Recently Relevant to Health Maintenance Results * (ABNORMAL) HEPATITIS C AB W REFLEX TO HCV RNA BY PCR (09/10/2019 11:10 EDT) Hep C Antibody Reactive(A ) Negative 09/11/2019 10:57 EDT [facility] Comment: Supplemental testing for HCV RNA is ordered to rule out active HCV infection. Blood VENOUS BLOOD / Unknown 09/10/2019 11:10 EDT 09/10/2019 16:24 EDT Provider Outr Resulting Lab CHEMISTRY & BLOOD GAS ORDERABLES [facility] [address] [place] [address] from Last 3 Months or Most Recently Relevant to Health Maintenance Care Teams Project Development Manager Relationship Specialty Start Date End Date Unknown, ProviderMD PCP - General 03/05/15
--- OUTSIDE RECORDS SUMMARY | 2023-12-18 23:53 | XMS_ITS | Encounter Summary ---
Author Organization [facility] [place] [address] Care Team Providers Care Aircraft Worker Name Role Phone Miguelina Allen MD Primary Care Provider [phone] Reason for Referral * Consultation (Routine) - Closed Specialty Diagnoses / Procedures Referred By Timothy t Referred To Contact Rheumatology Diagnoses Skin necrosis Arturo Gonsalez MD [facility] [place] [address] [facility] [address] [place] [address] Referral ID Status Reason Start Date Expiration Date V isits Requested Visits Authorized [id number] Closed Consult, Test & Treat 12/26/2016 12/26/2017 1 1 Reason for Visit * Reason Onset Date Comments Medication Refill 12/26/2016 Encounter Details Date Type Department Care Team (Late st Contact Info) Description 12/26/2016 Refill [place] [phone] Arturo Gonsalez MD [facility] [place] [address] Skin necrosis Social History Tobacco Use Types Packs/Day Years Used Date Smoking Tobacco: Former Cigarettes Q uit: 02/13/2016 Sex and Gender Information Value Date Recorded Sex Assigned at Not on file Gender Identity Not on file Sexual Orientation Not on file documented as of this encounter Plan of Treatment Scheduled Referrals Name Type Priority Associated Diagnoses Order Schedule Referral to Rheumatology Outpatient Referral Routine Skin necrosis Ordered: 12/26/2016 documented as of this encounter Visit Diagnoses Diagnosis Skin necrosis Other specified disorder of skin documented in this encounter Care Teams Aircraft Worker Relationship Specialty Start Date End Date Miguelina Allen MD [address] [place] [address] PCP - General 09/02/13 documented as of this encounter
--- OUTSIDE RECORDS SUMMARY | 2023-12-18 23:53 | XMS_ITS | Encounter Summary ---
Author Organization [facility] [address] Care Team Providers Care Private Security Guard Name Role Phone Miguelina Allen MD Primary Care Provider [phone] Encounter Details Date Type Department Care Team (Late st Contact Info) Description 03/20/2016 Refill Dermatology at [address] [place] [phone] Candelaria Scott, ASSEMBLY LEADER Social History Tobacco Use Types Packs/Day Years [...] on filedocumented in this encounter Care Teams Private Security Guard Relationship Specialty Start Date End Date Miguelina Allen MD [facility] [address] [place] [address] PCP - General 09/02/13 documented as of this encounter
--- OUTSIDE RECORDS SUMMARY | 2023-12-18 23:53 | XMS_ITS | Encounter Summary ---
Author Organization [facility] Address [address] [place] [address] Care Team Providers Care Hoisting Engineer Pile Driving Name Role Phone Unknown, Provider Primary Care Provider [phone] Encounter Details Date Type Department Care Team (Late st Contact Info) Description 09/10/2019 Lab Requisition [facility] Pathology & Laboratory Medicine - [facility] [address] [place], [place] [id number] Outr Resulting Lab, Provider Social History Tobacco [...] Procedure Name Priority Date/Time Associated Diagnosis Comments HCV RNA DETECT QUANT Today 09/10/2019 11:10 EDT HEPATITIS C AB W REFLEX TO HCV RNA BY PCR Routine 09/10/2019 11:10 EDT HEPATITIS A ANTIBODY IGM Today 09/10/2019 11:10 EDT HEPATITIS A TOTAL ANTIBODY W REFLEX Routine 09/10/2019 11:10 EDT HEPATITIS B CORE ANTIBODY (TOTAL) Routine 09/10/2019 11:10 EDT HEPATITIS B SURFACE ANTIBODY Routine 09/10/2019 11:10 EDT documented in this encounter Results * HEPATITIS A ANTIBODY IGM (09/10/2019 11:10 EDT) [facility] Hepatitis A Antibody, IgM Negative Negative 09/14/2019 15:08 EDT [facility] Blood VENOUS BLOOD / Unknown 09/10/2019 11:10 EDT 09/10/2019 16:25 EDT [facility] - 09/14/2019 15:08 EDT The results of this assay can be falsely lowered due to the consumption of Biotin. Provider Outr Resulting Lab CHEMISTRY & BLOOD GAS ORDERABLES Performing Organization Address [facility] Co de Phone Number [facility] [address] [place] [address] * HCV RNA DETECT QUANT (09/10/2019 11:10 EDT) [facility] HCV RNA Qualitative Undetected Undetected 09/14/2019 14:24 EDT [facility] Blood VENOUS BLOOD / Unknown 09/10/2019 11:10 EDT 09/10/2019 16:24 EDT [facility] - 09/14/2019 14:24 EDT The quantification range of this assay is 15 IU/mL to 100,000,000 IU/mL. ??Testing was performed on the EVERARDO Ampliprep/EVERARDO TaqMan HCV v2.0 ([employer] Provider Outr Resulting Lab CHEMISTRY & BLOOD GAS ORDERABLES Performing Organization Address [facility] Co de Phone Number [facility] [address] [place] [phone] * HEPATITIS B SURFACE ANTIBODY (09/10/2019 11:10 EDT) [facility] Hep B Surface Ab, Quantitative <3.1 See Note mIU/mL 09/11/2019 10:33 EDT [facility] Comment: Reference Range for Hep B Surface Ab, Quant: Positive: >= 10.0 mIU/mL Negative: ??< 10.0 mIU/mL Patient is presumed to not be immune to infection with Hepatitis B Virus. Hep B Surface Ab, Qualitative Negative See Note 09/11/2019 10:33 EDT [facility] Comment: Reference Range for Hep B Surface Ab, Qual: Unvaccinated: ??Negative Vaccinated: ??Positive Blood VENOUS BLOOD / Unknown 09/10/2019 11:10 EDT 09/10/2019 16:25 EDT Provider Outr Resulting Lab CHEMISTRY & BLOOD GAS ORDERABLES Performing Organization Address [facility] Co de Phone Number [facility] [address] [place] [address] * HEPATITIS B CORE ANTIBODY (TOTAL) (09/10/2019 11:10 EDT) Hepatitis B Core Ab, Total Negative Negative 09/11/2019 10:54 EDT [facility] Blood VENOUS BLOOD / Unknown 09/10/2019 11:10 EDT 09/10/2019 16:25 EDT Provider Outr Resulting Lab CHEMISTRY & BLOOD GAS ORDERABLES Performing Organization Address [facility] Co de Phone Number [facility] [address] [place] [address] * (ABNORMAL) HEPATITIS C AB W REFLEX TO HCV RNA BY PCR (09/10/2019 11:10 EDT) Pathologist [facility] Hep C Antibody Reactive(A ) Negative 09/11/2019 10:57 EDT [facility] Comment: Supplemental testing for HCV RNA is ordered to rule out active HCV infection. Blood VENOUS BLOOD / Unknown 09/10/2019 11:10 EDT 09/10/2019 16:24 EDT Provider Outr Resulting Lab CHEMISTRY & BLOOD GAS ORDERABLES Performing Organization Address [facility] de Phone Number [facility] [address] [place] [address] * (ABNORMAL) HEPATITIS A TOTAL ANTIBODY W REFLEX (09/10/2019 11:10 EDT) Hepatitis A Antibody, Total Positive(A ) Negative 09/11/2019 11:59 EDT [facility] Blood VENOUS BLOOD / Unknown 09/10/2019 11:10 EDT 09/10/2019 16:25 EDT Narrative [facility] - 09/11/2019 11:59 EDT The result of this assay can be falsely elevated (Positive) due to the consumption of Biotin. Provider Outr Resulting Lab CHEMISTRY & BLOOD GAS ORDERABLES [facility] [address] [place] [address] documented in this encounter Visit Diagnoses Not on filedocumented in this encounter Care Teams Hoisting Engineer Pile Driving Relationship Specialty Start Date End Date Unknown, Provider, PCP - General 03/05/15 documented as of this encounter
--- OUTSIDE RECORDS SUMMARY | 2023-12-18 23:53 | XMS_ITS | Encounter Summary ---
Author Organization [facility] Address [address] [place] [address] Care Team Providers Care Balance Wheel Facer Name Role Phone Unknown, Provider Primary Care Provider Encounter Details Date Type Department Care Team (Late st Contact Info) Description 04/05/2021 Lab Requisition [facility] Pathology & Laboratory Medicine - [address] [id number] Outr Resulting Lab, Provider Social History Tobacco [...] Procedure Name Priority Date/Time Associated Diagnosis Comments ANTI NUCLEAR AB (STELLA), IFA Routine 04/05/2021 11:30 EST documented in this encounter Results * ANTI NUCLEAR AB (STELLA), IFA (04/05/2021 11:30 EST) STELLA Interpretation Negative Negative 2020 15:34 EST [facility] Comment:No titer performed, STELLA Screen is negative. Blood VENOUS BLOOD / Unknown 04/05/2021 11:30 EST 04/05/2021 22:16 EST Narrative [facility] - 04/06/2021 15:34 EST Results were obtained with the INOVA NOVA Lite HEp-2 STELLA Kit by indirect immunofluorescence. Provider Outr Resulting Lab IMMUNOLOGY A ND SEROLOGY ORDERABLES [facility] [address] [place] [address] documented in this encounter Visit Diagnoses Not on filedocumented in this encounter Care Teams Balance Wheel Facer Relationship Specialty Start Date End Date Unknown, Provider, PCP - General 03/05/15 documented as of this encounter
--- OUTSIDE RECORDS SUMMARY | 2023-12-18 23:53 | XMS_ITS | Encounter Summary ---
Author Organization [facility] Address [address] [place] [address] Care Team Providers Care Shopping Inspector Name Role Phone Unknown, Provider Primary Care Provider [phone] Encounter Details Date Type Department Care Team (Latest Contact Info) Description 02/15/2016 11:20 EDT - 02/15/2016 23:59 EDT Hospital Encounter [address] [address] Unknown, Provider, Discharge Disposition: Home or Self Care Social History Tobacco Use Types Packs/Day Years Used Date Smoking Tobacco: Never Assessed Sex and Gender Information Value Date Recorded Sex Assigned at Not on file Gender Identity Not on file Sexual Orientation Not on file documented as of this encounter Discharge Diagnoses Diagnosis Z01.89 Encounter for other specified special examinations-Z01.89[ICD-10-CM] documented in this encounter Discharge Disposition Disposition Code Departure Means Destination Home or Self Snf documented in this encounter Plan of Treatment Not on file documented as of this encounter Visit Diagnoses Not on filedocumented in this encounter Care Teams Shopping Inspector Relationship Specialty Start Date End Date Unknown, ProviderMD PCP - General 03/05/15 documented as of this encounter
--- OUTSIDE RECORDS SUMMARY | 2023-12-18 23:53 | XMS_ITS | Encounter Summary ---
Author Organization [facility] Address [address] [place] [address] Care Team Providers Care Functional Tester Typewriters Name Role Phone Unavailable Primary Care Provider Unavailabl e Encounter Details Date Type Department Care Team (Late st Contact Info) Description 05/12/2007 Results Only [facility] Psychiatry [address] [place] [address] Royer Kline MD [address] [place] [address] Social History Tobacco Use Types Packs/Day Years [...] REFLEX TO HCV RNA BY PCR Routine 05/12/2007 21:05 EST HEPATITIS B CORE ANTIBODY (TOTAL) Routine 05/12/2007 21:05 EST HEPATITIS B SURFACE ANTIBODY Routine 05/12/2007 21:05 EST HEPATITIS B SURFACE ANTIGEN Routine 05/12/2007 21:05 EST COMPLETE BLOOD COUNT AND DIFFERENTIAL Routine 05/12/2007 21:05 EST HIV 1/2 ANTIGEN AND ANTIBODY, 4TH GENERATION Routine 05/12/2007 21:05 EST COMPREHENSIVE METABOLIC PANEL (CMP) Routine 05/12/2007 21:05 EST documented in this encounter Results * HIV ANTIBODY (05/12/2007 21:05 EST) HIV 1/2 Antibody NONREACT. NR [facility] 05/12/2007 21:0 5 EST 05/13/2007 15:54 EST Royer Kline MD IMMUNOLOGY AND SEROL OGY ORDERABLES Performing Organization Address [facility] Co de Phone Number [facility] [address] [place] [address] * HEPATITIS C ANTIBODY (05/12/2007 21:05 EST) Hepatitis C Ab Neg [facility] 05/12/2007 21:0 5 EST 05/13/2007 15:54 EST Royer Kline MD CHEMISTRY & BLOOD GA S ORDERABLES Performing Organization Address [facility] de Phone Number [facility] [address] [place] [address] * HEPATITIS B CORE ANTIBODY (05/12/2007 21:05 EST) Hep B Core Ab Neg [facility] 05/12/2007 21:0 5 EST 05/13/2007 15:54 EST Royer Kline MD CHEMISTRY & BLOOD GA S ORDERABLES Performing Organization Address [facility] de Phone Number [facility] [address] [place] [address] * HEPATITIS B SURFACE ANTIGEN (05/12/2007 21:05 EST) Hepatitis B Surface Ag Neg [facility] 05/12/2007 21:0 5 EST 05/13/2007 15:54 EST Royer Kline MD CHEMISTRY & BLOOD GA S ORDERABLES Performing Organization Address [facility] Co de Phone Number [facility] [address] [place] [address] * HEPATITIS B SURFACE ANTIBODY (05/12/2007 21:05 EST) Hepatitis B Surface Ab Neg [facility] 05/12/2007 21:0 5 EST 05/13/2007 15:54 EST Royer Kline MD CHEMISTRY & BLOOD GA S ORDERABLES Performing Organization Address [facility] Co de Phone Number [facility] [address] [place] [address] * (ABNORMAL) COMPREHENSIVE METABOLIC PANEL (05/12/2007 21:05 EST) Pathologist [facility] Potassium 4.5 3.5 - 5.0 mEq/L [facility] Sodium 139 136 - 145 mEq/L [facility] Chloride 100 96 - 110 mEq/L [facility] CO2 28 24 - 32 mEq/L [facility] Total Alkaline Phosphatase 84 38 - 126 U/L [facility] Bilirubin, Total <0.5 0.2 - 1.3 mg/dl [facility] AST 157(H) 15 - 46 U/L [facility] ALT 49 21 - 72 U/L [facility] Albumin 5.0(H) 3.4 - 4.9 g/dl [facility] Total Protein 7.7 6.5 - 8.3 g/dl [facility] Creatinine 0.84 0.7 - 1.5 mg/dl [facility] GFR, Calculated >60 ml/min/1.7 3m2 [facility] BUN 17 10 - 26 mg/dl [facility] Calcium 9.8 8.5 - 10.5 mg/dl [facility] Calculated Calcium 9.2 8.5 - 10.5 mg/dl [facility] Glucose, Serum 83 70 - 100 mg/dl [facility] Fasting? No [facility] 05/12/2007 21:0 5 EST 05/13/2007 15:54 EST Royer Kline MD CHEMISTRY & BLOOD GA S ORDERABLES Performing Organization Address [facility] Co de Phone Number [facility] [address] [place] [address] * (ABNORMAL) HEMAGRAM AND DIFFERENTIAL (05/12/2007 21:05 EST) WBC 8.88 4.0 - 10.4 K/cmm [facility] RBC 4.72 4.36 - 5.78 M/cmm [facility] Hemoglobin 15.9 13.8 - 17.3 gm/dl [facility] HCT 45.9 39.5 - 50.2 % [facility] MCV 97(H) 81 - 95 fl [facility] MCH 33.7(H) 27.6 - 33.0 pg [facility] MCHC 34.7 32.8 - 36.4 gm/dl [facility] PLT 178 141 - 320 K/cmm [facility] RDW-CV 11.8 11.8 - 14.1 % [facility] % Neutrophils 46.1 45.5 - 79.7 % [facility] % Lymphocytes 40.3 15.0 - 46.8 % [facility] % Monocytes 9.8 1.8 - 12.0 % [facility] % Eosinophils 3.3 0.6 - 6.9 % [facility] % Basophils 0.5 0.2 - 1.4 % [facility] ABS Neutrophils 4.09 2.20 - 8.85 K/cmm [facility] ABS Lymphs 3.58(H) 1.09 - 3.30 K/cmm [facility] ABS Monocytes 0.87(H) 0.1 - 0.8 K/cmm [facility] ABS Eosinophils 0.29 0.03 - 0.61 K/cmm [facility] ABS Basophils 0.05 0.01 - 0.11 K/cmm [facility] Type of Diff: Automated [facility] 05/12/2007 21:0 5 EST 05/13/2007 15:54 EST Royer Kline MD PACKAGES & DNA PROBE ORDERABLES [facility] [address] [place] [address] documented in this encounter Visit Diagnoses Not on filedocumented in this encounter
--- OUTSIDE RECORDS SUMMARY | 2023-12-18 23:54 | XMS_ITS | Encounter Summary ---
Author Organization [facility] [address] Care Team Providers Care Counselling Psychologist Name Role Phone Miguelina Allen MD Primary Care Provider [phone] Reason for Visit * Reason Comments Skin Check Encounter Details Date Type Department Care Team (Late st Contact Info) Description 07/06/2014 10:00 AM EDT Office Visit Dermatology at [address] [place] [address] Edgardo Loera MD [address] [place] [address], [place] [address] Dermatitis Discharge Disposition: Home Social History Tobacco Use Types Packs/Day Years Used Date Smoking Tobacco: Every Day Cigarettes Tobacco Cessation:Ready to Q uit: No Sex and Gender Information Value Date Recorded Sex Assigned at Not on file Gender Identity Not on file Sexual Orientation Not on file documented as of this encounter Patient Instructions * Patient Instructions* Svitlana Templeton LPN - 07/06/2014 10:31 AM EDT Images from the original note were not included. [facility] Dermatitis: After Your Visit Your Care Instructions Dermatitis is the general name used for any rash or inflammation of the skin. Different kinds of dermatitis cause different kinds of rashes. Common causes of a rash include new medicines, plants (such as poison oak or poison alec), heat, stress, and allergies to soaps, cosmetics, detergents, chemicals, and fabrics. Certain illnesses can also cause a rash. Unless caused by an infection, these rashes cannot be spread from person to person. How long your rash will last depends on what caused it. Rashes may last a few days or months. Follow-up care is a miller part of your treatment and safety. Be sure to make and go to all appointments, and call your doctor if you are having problems. It???s also a good idea to know your test results and keep a list of the medicines you take. How can you care for yourself at home? ?? Do not scratch. Cut your nails short, and file them smooth. Or you may wear gloves if this helpskeep you from scratching. ?? If you use soap on the rash, choose a gentle soap and use as little as possible. ?? Put cold, wet cloths on the rash to reduce itching. ?? Keep cool, and stay out of the sun. Heat makes itching worse. ?? Leave the rash open to the air when you can. If your clothes have to cover the rash, wear cottonor silk. ?? If the rash itches, use hydrocortisone cream. Follow the directions on the label. Calamine lotion may help for plant rashes. ?? Try an gbjm-tnx-nkrwblo antihistamine such as diphenhydramine (Benadryl) or chlorpheniramine (Chlor-Trimeton). Follow the directions on the label. ?? If you get a prescription steroid cream or pills, use them as directed. When should you call for help? Call your doctor now or seek immediate medical care if: ?? You have signs of infection, such as: ?? Increased pain, swelling, warmth, or redness. ?? Red streaks leading from the rash. ?? Pus draining from the rash. ?? A fever. ?? You have joint pain along with the rash. ?? The rash gets worse or spreads to other parts of your body. Watch closely for changes in your health, and be sure to contact your doctor if: ?? You do not get better after 2 to 3 weeks of home treatment. Where can you learn more? Visit our health information library at [email or web address] You can also view health information on [employer], your personal patient account. Log in or sign up today. Enter F270 in the search box to learn more about Dermatitis: After Your Visit. ?? [id number] [employer]. Care instructions adapted under license by [facility]. This care instruction is for use with your licensed healthcare professional. If you have questions about a medical condition or this instruction, always ask your healthcare professional. [employer] disclaims any warranty or liability for your use of this information. Content Version: 10.3.479593; Current as of: July 08, 2013 documented in this encounter Progress Notes * Edgardo Loera MD - 07/06/2014 10:45 AM EDT Problem: Hand dermatitis. Adrian is a 33-year-old gentleman who has had problems almost for a year now involving hand dermatitis involving his dorsal hands. It began when he was working at [employer] in [place], but it continued even after he stopped working there. He has used Lubriderm without benefit. He was seen yesterday by Dr. Orozco who suggested Elocon cream. Since the patient has his appointment today, he decided to hold off and await my opinion. Physical examination reveals a pleasant, 33-year-old gentleman who has violaceous discoloration over the dorsal MCP and PIP joints of both hands, left worse than right, but also with more acute, more erythematous inflammatory papules and some patches over the dorsal hands as well. The patient states that today is a good day. He does not have any rash elsewhere. There is no extension above his wrists. He has no palmar hand involvement. No one else at home has any itching or any skin rashes. Assessment and Plan: Eczematous dermatitis, hands; I suspect allergic contactant. a. I have asked the patient today to return to clinic when he is actually experiencing a flare of the dermatitis so that I may more conclusively diagnose it. b. I recommended that for the mild involvement now, he should begin clobetasol cream, applying b.i.d. for two weeks, then discontinue; 30 grams dispensed with zero refills. c. The patient was also asked to photograph any flares he might have with his smartphone. I do not think this is workplace related given its ongoing extended course, even after finishing work last October at [employer]. COPY: Miguelina Allen M.D. Yazan Orozco M.D. documented in this encounter Plan of Treatment Not on file documented as of this encounter Visit Diagnoses Diagnosis Dermatitis Contact dermatitis and other eczema, due to unspecified cause documented in this encounter Care Teams Counselling Psychologist Relationship Specialty Start Date End Date Miguelina Allen MD [address] [place] [address] [facility] [address] [place] [address] PCP - General 09/02/13 documented as of this encounter
--- OUTSIDE RECORDS SUMMARY | 2023-12-18 23:54 | XMS_ITS | Encounter Summary ---
Author Organization [facility] Address [facility] [place] [address] Care Team Providers Care Campus Security Director Name Role Phone Miguelina Dang MD Primary Care Provider [phone] Reason for Visit * Reason Comments Establish Care R ankle pain and non healing ulcers * Consultation (Routine) - Closed Specialty Diagnoses / Procedures Referred By Contac t Referred To Contact Vascular Surgery Diagnoses NEW ONSET OF BILATERAL MEDIAL MALLEOLAR ULCERATIONS Miguelina Dang MD [address] [place] [address] [facility] Vascular Surg [address] [place] [address] Referral ID Status Reason Start Date Expiration Date V isits Requested Visits Authorized [id number] Closed Consult, Test & Treat [facility] 02/21/2016 02/20/2017 2 2 Encounter Details Date Type Department Care Team (Late st Contact Info) Description 02/23/2016 1:00 PM EDT Office [place] [address] Deepika Dailey APRN [facility] [place] [address] IV drug abuse Social History Tobacco Use Types Packs/Day Years Used Date Smoking Tobacco: Former Cigarettes Q uit: 02/13/2016 Sex and Gender Information Value Date Recorded Sex Assigned at Not on file Gender Identity Not on file Sexual Orientation Not on file documented as of this encounter Last Filed Vital Signs Vital Sign Reading Time Taken Comments Blood Pressure 131/72 02/23/2016 1:12 PM EDT Pulse 111 02/23/2016 1:12 PM EDT Temperature - - Respiratory Rate - - Oxygen Saturation - - Inhaled Oxygen Concentration - - Weight 53.5 kg (118 lb) 02/23/2016 1:12 PM EDT Height 172.7 cm (5' 8) 02/23/2016 1:12 PM EDT Body Mass Index 17.94 02/23/2016 1:12 PM EDT documented in this encounter Progress Notes * Deepika Dailey Fred, SILK SCREEN OPERATOR - 02/23/2016 1:00 PM EDT Images from the original note were not included. This is a new patient to the practice who is being evaluated for necrotic skin right ankle and footpain and was referred by MIGUELINA DANG MD. 35 yo male with past history of IV drug abuse clean for last 9 years. States 2 months ago noticed right ankle skin color changes. States red areas became blistered and then turned to black hard scab.Over the next month he started to develop similar but not as extensive on left ankle and left posterior calf. He has c/o chills but no fever daily for last month. He has lost 20-25 lbs over last month as well because of pain in right foot which had progressively got worsen C/o pain planter right foot and foot swelling. He has been using dry bandage and ALICIA wrap for compression. Denies SOB, cough.C/o epigastric chest pressure today with nausea and lightheadedness. States when he was using IV reyna gs he only used arms, never feet ankles for legs. States 3 weeks ago attempt at blood draw in rightthe developed non painful wound tip of right thumb. Biopsy right ankle wound 2 weeks ago results unknown at the point. PMHx: Past Medical History Diagnosis Date ??? IV drug abuse 02/23/2016 History of IV drug use Clean for last 9 years ??? Skin necrosis 02/23/2016 Social Hx: Social History Substance Use Topics ??? Smoking status: Former Smoker Types: Cigarettes Quit date: 02/13/2016 ??? Smokeless tobacco: Not on file ??? Alcohol use Not on file Medications: Medications 02/23/16 1341 Medication Sig Taking? oxyCODONE (ROXICODONE) 10 mg Tablet Take 10 mg by mouth every 6 hours as needed. Yes predniSONE (DELTASONE) 10 mg Tablet Take 10 mg by mouth daily. Currently taking 40 mg QD Yes gabapentin (NEURONTIN) 300 mg Capsule Take 300 mg by mouth 2 times daily. Will increase to 3x/day st. 02/23 Yes ketorolac (TORADOL) 10 mg Tablet Take 10 mg by mouth every 6 hours as needed for Pain. Yes Allergies: No Known Allergies Review of Systems: Constitutional (weight change, fever) - 20-25# wt loss Neuro (dizziness, seizures, numbness, tingling) - Denies Eyes (vision) - Denies Ears, nose, throat (hearing) - Denies Cardiovascular (CP) - Denies Respiratory (SOB) - Denies GI (abd pain, nausea, emesis, blood in stool) - poor appetite (hematuria, dysuria, frequency) - Denies Muscoloskeletal (extremity pain, weakness) - Denies Skin (ulcers, rashes) - b ankle skin eschars R>L. Physical Exam: Vitals: Vitals: 02/23/16 1312 BP: 131/72 Pulse: 111 General: NAD, appears well thin Neuro: Alert and oriented, motor sensory grossly intact Lungs: CTA Heart: RRR tachy Abd: Soft, NT, ND, no palpable pulsatile masses Extremity - [place], warm, no ulceration, brisk capillary refill, right foot edema right ankle eschar,left ankle small eschar and left posterior calf. No cellulitis. Vascular: R L Carotid 2/2 bruit (n) 2/2 bruit (n) Radial 2/2 2/2 Femoral 2/2 2/2 Popliteal 2/2 2/2 DP 2/2 2/2 PT 2/2 2/2 Venous duplex Right ?Reflux?Thrombus? Common Femoral Vein ?Reflux ? Femoral Vein ? Competent ? Popliteal ?Competent ? Posterior Tibial Vein ??Competent ? GSV, Near SFJ ?Competent ? GSV, Proximal Thigh ?Competent ? GSV, Mid Thigh ? Competent ? GSV, Distal Thigh ?Competent ? GSV, ??Knee ? Competent ? GSV Prox Calf ? THROMBUS ? GSV, Mid Calf ? THROMBUS ? GSV, Ankle ? Competent ??NON-OCCLUSIVE THROMBUS ?? SSV ?Competent ??NON-OCCLUSIVE THROMBUS ?? Left ? Reflux?Thrombus? ?? Common Femoral Vein ?Reflux ? Femoral Vein ? Competent ? Popliteal ?Competent ? Posterior Tibial Vein ??Competent ? GSV, Near SFJ ?Competent ? GSV, Proximal Thigh ?Competent ? GSV, Mid Thigh ? Competent ? GSV, Distal Thigh ?Competent ? GSV Prox Calf ? THROMBUS ?? GSV, Mid Calf ? THROMBUS ?? GSV, Ankle ?THROMBUS ?? SSV ? THROMBUS ?? Interpretation: RIGHT: The great and small saphenous veins are mostly thrombosed through the calf. No evidence of DVT. Isolated reflux in the common femoral vein. No identifiable reflux in the remainder of the deep veins or in the great saphenous vein from the groin to the knee. LEFT: The great and small saphenous veins are thrombosed through the calf. No evidence of DVT. Isolated reflux in the common femoral vein. No identifiable reflux in the remainder of the deep veins or in the great saphenous vein from the groin to the knee. Assessment/Plan: 35 yo male with past history of IV drug abuse clean for last 9 years. States 2 months ago noticed right ankle skin color changes, to eschar the to left ankle. C/o right foot pain 9/10 worsening every day and edema. Venous duplex with no DVT. B SSV and GSV knee to ankle mostly thrombosed. Skin problem of unknown etiology . Thrombosed superfical veins on duplex as result of skin problem. This is not a vascular surgery problem. Reviewed with Dr Rodríguez. Recommend f/u with PCP and multiple tube winding machine operator. documented in this encounter Plan of Treatment Not on file documented as of this encounter Visit Diagnoses Diagnosis IV drug abuse Other, mixed, or unspecified nondependent drug abuse, unspecified documented in this encounter Care Teams Campus Security Director Relationship Specialty Start Date End Date Miguelina Dang MD [address] [place] [address] PCP - General 09/02/13 documented as of this encounter
--- OUTSIDE RECORDS SUMMARY | 2023-12-18 23:54 | XMS_ITS | Encounter Summary ---
Author Organization [facility] Address [facility] [place] [address] Care Team Providers Care Legal Records Clerk Name Role Phone Miguelina Allen MD Primary Care Provider [phone] Encounter Details Date Type Department Care Team (Late st Contact Info) Description 02/17/2016 Orders Only Vascular Surgery at [facility] [place] [address] Shirin Gonzalez RN Right ankle pain, unspecified chronicity; Ulcers of both lower extremities Social History Tobacco Use Types Packs/Day Years Used Date Smoking Tobacco: Every Day Cigarettes Sex and Gender Information Value Date Recorded Sex Assigned at Not on file Gender Identity Not on file Sexual Orientation Not on file documented as of this encounter Plan of Treatment Not on file documented as of this encounter Results * Venous Valvular Incomp, Bilat Legs (02/23/2016 10:21 AM EDT) VB Text Report Department: Vascular Surgery Lab Patient: [id number] (JULIAN ROSA) CPT: 01509 ICD10: M25.571;L97.929; L97.919 Referring Physician: DYLON LARKIN ?? Phone: Indications: non healing BLE ulcers and R ankle pain; ? valvular incompetence ICD10 Diagnosis Code: M25.571, L97.929, L97.919 Findings: Right ?Reflux?Thrombus? Common Femoral Vein ?Reflux ? [...] vein from the groin to the knee. Comparison: ??No previous study in our vascular lab database for comparison. Electronically Signed by: DYLON LARKIN on 2016-02-23 05:01:16 PM [facility] VB Text Report End of Report [facility] 02/23/2016 10:2 1 AM EDT Dylon Larkin MD VASCULAR [facility] documented in this encounter Visit Diagnoses Diagnosis Right ankle pain, unspecified chronicity Ulcers of both lower extremities Ulcer of lower limb, unspecified documented in this encounter Care Teams Legal Records Clerk Relationship Specialty Start Date End Date Miguelina Allen MD [facility] [address] [facility] [address] [place] [address] PCP - General 09/02/13 documented as of this encounter
--- OUTSIDE RECORDS SUMMARY | 2023-12-18 23:54 | XMS_ITS | Encounter Summary ---
Author Organization [facility] [address] [facility] [place] [address] Care Team Providers Care Transit Mechanic Name Role Phone Miguelina Allen MD Primary Care Provider [phone] Encounter Details Date Type Department Care Team (Late st Contact Info) Description 01/23/2016 10:27 AM EDT - 01/23/2016 1:57 PM EDT Emergency Emergency Department [facility] [place] [address] Cellulitis of foot, right (Primary Dx); Right foot pain Discharge Disposition: Home Social History Tobacco Use Types Packs/Day Years Used Date Smoking Tobacco: Every Day Cigarettes Sex and Gender Information Value Date Recorded Sex Assigned at Not on file Gender Identity Not on file Sexual Orientation Not on file documented as of this encounter Last Filed Vital Signs Vital Sign Reading Time Taken Comments Blood Pressure 138/75 01/23/2016 1:50 PM EDT Pulse 70 01/23/2016 1:50 PM EDT Temperature 36.6 ??C (97.9 ??F) 01/23/2016 10:40 AM E DT Respiratory Rate 18 01/23/2016 1:50 PM EDT Oxygen Saturation 100% 01/23/2016 1:50 PM EDT Inhaled Oxygen Concentration - - Weight 65.3 kg (144 lb) 01/23/2016 10:40 AM EDT Height - - Body Mass Index - - documented in this encounter Discharge Instructions * Attachments The following attachments cannot be sent through Care Everywhere. * CELLULITIS (RWANDAN) documented in this encounter Medications at Time of Discharge Medication Sig Dispensed Refills Start Date End Date SUBOXONE 2-0.5 mg Film 0 10/04/2015 sulfamethoxazole-trimet hoprim (BACTRIM DS) 800-160 mg Tablet take 1 tablet by mouth twice a day 0 01/16/2016 clindamycin (CLEOCIN) 300 mg Capsule Take 1 capsule by mouth 3 times daily for 7 days. 21 capsule 01/23/2016 01/30/2016 documented as of this encounter ED Notes * Marzena Head PA - 01/23/2016 1:57 PM EDT Received a phone call from the pharmacist in [place], [place] where the patient went to fill hisnorco prescription. The pharmacist was concerned that this patient is on Suboxone and he was actingoddly when he went to fill his prescription. They searched their prescription database which raisedseveral red- flags, multiple prescribes, different pharmacies where the patient has been collecting Suboxone. I advised them not to fill the norco at this time and the patient needs to follow-up with his PCP. Marzena Head PA 01/24/16 1615 * Vishnu Scruggs RN - 01/23/2016 12:38 PM EDT Pt a very difficult venapuncture, four attempts to get microtainers to send for labs. Awaiting results prior to dispo. * Marzena Head PA - 01/23/2016 11:16 AM EDT Images from the original note were not included. CC: Right Foot Pain HPI 35-year-old male with no significant past medical history presents to the ED today complaining of right foot pain which has persisted for the past 2-1/2 weeks. He denies any known injury or trauma, however around the time the pain started he was loading a brass roller into a truck, had his right footbehind the wheel and the wheel may have rolled over his foot but he does not remember. States the pain is worse from his medial upper ankle to his entire right foot, pain is described as a tingling and shooting pain that radiates up his right leg at times. Walking on the foot worsens the pain. Denies fever, chills, nausea or vomiting but states he has felt hot and cold recently which is unusual for him. Denies any recent illnesses, denies IV drug use, no recent bug bites or stings. A rash is present on his medial right ankle, denies itching or discharge. States the redness began approximatelyone week ago and has not seen any providers recently or been evaluated for similar issues in the past. He has tried soaking foot in epsom salts, wrapping and elevating withhout improvement. No Known Allergies Review of Systems Full 4 system ROS completed with pertinent positives and negatives noted in above HPI Physical Exam Constitutional: He is oriented to person, place, and time. He appears well- developed and well-nourished. No distress. Pulmonary/Chest: Effort normal. No respiratory distress. Musculoskeletal: Limited right ankle ROM to PF/DF, inversion/eversion. Tenderness noted to right medial malleolar area and entire right foot, mild swelling around medial malleolus. +2 DP/PT pulses. Area of erythema with outward tracking of medial malleolus. Slightly warmer on right compared to left. Small healing scabs, no exudate. No other skin lesions noted on full body check. Neurological: He is alert and oriented to person, place, and time. Skin: Skin is warm and dry. Rash noted. There is erythema. Nursing note and vitals reviewed. XR Ankle Right COMPARISON: None ?? FINDINGS: ?? No significant soft tissue swelling is appreciated. No soft tissue gas is identified. There is no radiographic evidence of osteomyelitis. There is no fracture or dislocation. The visualized joint spaces are maintained. The ankle mortise is not widened ?? IMPRESSION No radiographic evidence of osteomyelitis. Recent Results (from the past 72 hour(s)) Basic Metabolic Panel (non-fasting) Result Value Ref Range Glucose Lvl 104 65 - 199 mg/dL BUN 10 10 - 20 mg/dL Creatinine 0.89 0.80 - 1.50 mg/dL Sodium 140 135 - 145 mmol/L Potassium 4.3 3.5 - 5.0 mmol/L Chloride 101 98 - 107 mmol/L CO2 24 22 - 31 mmol/L Anion Gap 15 5 - 15 mmol/L Calcium 9.3 8.5 - 10.5 mg/dL Estimated GFR >60 >=60 Hemogram Result Value Ref Range WBC 5.7 4.0 - 9.5 x10(3)/mcL RBC 4.59 4.58 - 5.54 x10(6)/mcL Hemoglobin 14.9 13.7 - 16.5 gm/dL Hematocrit 42.7 40.5 - 48.5 % MCV 93.0 82.9 - 93.1 fL MCH 32.5 (H) 27.5 - 32.1 pg MCHC 34.9 32.0 - 35.7 gm/dL Platelets 286 145 - 357 x10(3)/mcL RDWSD 42.5 36.0 - 45.0 fL RDWCV 12.2 11.4 - 13.8 % MPV 10.4 7.6 - 12.9 fL nRBC % Auto 0.0 % nRBC Abs Auto 0.000 0.000 - 0.000 x10(3)/mcL Differential, Automated Result Value Ref Range Neutrophils % 56.6 % Neutr Abs (ANC) 3.25 1.70 - 6.10 x10(3)/mcL Lymphocytes % 31.2 % Lymphocytes Abs 1.8 0.9 - 3.2 x10(3)/mcL Monocytes % 7.7 % Monocyte Abs 0.4 0.3 - 0.9 x10(3)/mcL Eosinophils % 3.5 % Eosinophils Abs 0.2 0.0 - 0.4 x10(3)/mcL Basophils % 0.7 % Basophils Abs 0.0 0.0 - 0.1 x10(3)/mcL Immature Gran % 0.30 % Alicia Gran Abs 0.02 0.00 - 0.04 x10(3)/mcL Procedures NONE MDM Patient was evaluated as above. Initial presentation concerning for possible cellulitis versus vasculitis versus deep tissue infection of unknown etiology. X-ray was reassuring and did not demonstrate any acute deep space infection or osteomyelitis. Labs were reassuring and did not demonstrate leukocytosis or any significant metabolic abnormality. At this time there are no acute urgent issues that require ongoing ED evaluation. Patient will be treated with oral clindamycin for 7 days, advised him to follow up with his primary care provider in the next week return to the ED if any new or worsening concerns. I have evaluated this patient in conjunction with ED attending physician who also assisted in medical decision making. ED Course: H&P Chart Review XR Ankle Right Labs Marzena Head PA 01/23/16 1406 documented in this encounter Miscellaneous Notes * ED Triage - Vishnu Scruggs RN - 01/23/2016 10:42 AM EDT Pt presents with 2.5 weeks of Rt ankle pain associated with redness and inflammation. 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 He ambulates with a limp, states soaking it with epsom salt has had little effect. documented in this encounter Plan of Treatment Not on file documented as of this encounter Procedures Procedure Name Priority Date/Time Associated Diagnosis Comments HEMOGRAM STAT 01/23/2016 12:35 PM EDT DIFFERENTIAL, AUTOMATED STAT 01/23/2016 12:35 PM EDT CBC (WITH DIFF) STAT 01/23/2016 12:35 PM EDT BASIC METABOLIC PANEL STAT 01/23/2016 12:35 PM EDT XR ANKLE MIN 3 VIEWS RIGHT STAT 01/23/2016 11:28 AM EDT documented in this encounter Results * Differential, Automated (01/23/2016 12:35 PM EDT) Neutrophil % 56.6 % [facility] Neutrophil Absolute 3.25 1.70 - 6.10 x10(3)/[facility] Lymph % 31.2 % [facility] Lymphocytes Abs 1.8 0.9 - 3.2 x10(3)/[facility] Monocyte % 7.7 % [facility] Monocyte Abs 0.4 0.3 - 0.9 x10(3)/[facility] Eos % 3.5 % [facility] Eosinophils Abs 0.2 0.0 - 0.4 x10(3)/[facility] Basophil % 0.7 % [facility] Baso Absolute 0.0 0.0 - 0.1 x10(3)/[facility] Immature Gran % 0.30 % [facility] Comment: Immature granulocytes(IG's)percentage and absolute count will include metamyelocytes, myelocytes, and promyelocytes. Blood smears from CBCs yielding IG's will be scanned manually for concordance. If this scan disagrees with the automated IG or if promyelocytes are noted, a manual differential will be performed. Immature Gran Absolute 0.02 0.00 - 0.04 x10(3)/[facility] Blood specimen (specimen) 01/23/2016 12:35 PM EDT 01/23/2016 12:52 PM EDT Narrative Resulting Agency Comment Spec In Lab Gurwinder Zapata MD HEMATOLOGY ORDERABLE S Performing Organization Address City/State/[facility] Co de Phone Number [facility] [place] [address] * (ABNORMAL) Hemogram (01/23/2016 12:35 PM EDT) White Blood Cell 5.7 4.0 - 9.5 x10(3)/mc L [facility] Red Blood Cell 4.59 4.58 - 5.54 x10(6)/ L [facility] Hemoglobin 14.9 13.7 - 16.5 gm/dL [facility] Hematocrit 42.7 40.5 - 48.5 % [facility] Mean Cell Volume 93.0 82.9 - 93.[address] [facility] Mean Cell Hemoglobin 32.5(H) 27.5 - 32.[address] [facility] Mean Cell Hemoglobin Concentration 34.9 32.0 - 35.7 gm/dL [facility] Platelet 286 145 - 357 x10(3)/mc L [facility] RDW Standard Deviation 42.5 36.0 - 45.[address] [facility] RDW coefficient of variation 12.2 11.4 - 13.8 % [facility] Mean Platelet Volume 10.4 7.6 - 12.[address] [facility] NRBC% auto 0.0 % [facility] NRBC Absolute 0.000 0.000 - 0.000 x10(3)/mc L [facility] Blood specimen (specimen) 01/23/2016 12:35 PM EDT 01/23/2016 12:52 PM EDT Narrative Resulting Agency Comment Spec In Lab Gurwinder Zapata MD HEMATOLOGY ORDERABLE S [facility] [place] [address] * Basic Metabolic Panel (non-fasting) (01/23/2016 12:35 PM EDT) Glucose 104 65 - 199 mg/dL [facility] Comment:Diabetes: >=200 mg/d L plus symptoms Blood Urea Nitrogen 10 10 - 20 mg/dL [facility] Creatinine 0.89 0.80 - 1.50 mg/dL [facility] Comment: Please note that the pediatric reference intervals supplied above were not validated at [facility]. Results from pediatric patients should be interpreted in conjunction to the patient's age, height and muscle mass. Sodium 140 135 - 145 mmol/L [facility] Potassium 4.3 3.5 - 5.0 mmol/L [facility] Comment: Please note: ??Patients with WBC >100,000 may have falsely elevated Potassium levels. ??For accurate Potassium quantification in these patients send serum separator tube (gold top) for subsequent determinations. ??Contact the Clinical Chemistry Laboratory if there are any questions. Chloride 101 98 - 107 mmol/L [facility] Carbon Dioxide 24 22 - 31 mmol/L [facility] Anion Gap 15 5 - 15 mmol/L [facility] Calcium 9.3 8.5 - 10.5 mg/dL [facility] Est Glomerular Filtration Rate >60 >=60 [facility] Comment: This estimated GFR (eGFR) value was calculated using the MDRD equation which has been validated on patients between the ages of 18 and 70. The MDRD should not be used to assess kidney function in patients < 18 years of age or in patients with extremes of body mass, or in patients with acute kidney failure. This value should be multiplied by 1.2 for patients. For further information please copy and paste the following links into your internet browser. [email or web address] Blood specimen (specimen) 01/23/2016 12:35 PM EDT 01/23/2016 12:53 PM EDT Narrative Resulting Agency Comment Spec In Lab Gurwinder Zapata MD CHEMISTRY ORDERABLES Performing Organization Address City/State/[facility] Co de Phone Number [facility] [place] [phone] * XR Ankle Min 3 views Right (Generic) (01/23/2016 11:28 AM EDT) Anatomical Region Laterality Modality Ankle Right Digital Radiogra phy Impressions 01/23/2016 11:30 AM EDT No radiographic evidence of osteomyelitis. Narrative 01/23/2016 11:30 AM EDT EXAMINATION: XR ANKLE MIN 3 VIEWS RIGHT CLINICAL HISTORY: right ankle pain, swelling, evaluate for deep tissue infection TECHNIQUE: Frontal, lateral, and oblique radiograph the right ankle were obtained. COMPARISON: None FINDINGS: No significant soft tissue swelling is appreciated. No soft tissue gas is identified. There is no radiographic evidence of osteomyelitis. There is no fracture or dislocation. The visualized joint spaces are maintained. The ankle mortise is not widened Procedure Note Yumiko Herrmann MD - 01/23/2016 EXAMINATION: XR ANKLE MIN 3 VIEWS RIGHT CLINICAL HISTORY: right ankle pain, swelling, evaluate for deep tissueinfection TECHNIQUE: Frontal, lateral, and oblique radiograph the right ankle were obtained. COMPARISON: None FINDINGS: No significant soft tissue swelling is appreciated. No soft tissue gasis identified. There is no radiographic evidence of osteomyelitis. There isno fracture or dislocation. The visualized joint spaces are maintained. Theankle mortise is not widened IMPRESSION No radiographic evidence of osteomyelitis. Gurwinder Zapata MD IMG DX ORDERABLES documented in this encounter Visit Diagnoses Diagnosis Cellulitis of foot, right- Primary Cellulitis and abscess of foot, except toes Right foot pain Pain in limb documented in this encounter Care Teams Transit Mechanic Relationship Specialty Start Date End Date Miguelina Allen MD [address] [place] [address] PCP - General 09/02/13 documented as of this encounter
--- OUTSIDE RECORDS SUMMARY | 2023-12-18 23:54 | XMS_ITS | Encounter Summary ---
Author Organization [facility] Address [facility] [place] [address] Care Team Providers Care Cloth Boil Off Machine Operator Name Role Phone Miguelina Allen MD Primary Care Provider [phone] Reason for Visit * Consultation (Routine) - Closed Specialty Diagnoses / Procedures Referred By Timothy pisano Referred To Contact Vascular Surgery Diagnoses NEW ONSET OF BILATERAL MEDIAL MALLEOLAR ULCERATIONS Miguelina Allen MD [facility] [address] [place] [address] [facility] [address] [place] [address] Referral ID Status Reason Start Date Expiration Date V isits Requested Visits Authorized [id number] Closed Consult, Test & Treat [facility] 02/21/2016 02/20/2017 2 2 Encounter Details Date Type Department Care Team (Latest Contact Info) Description 02/23/2016 10:00 AM EDT - 02/23/2016 11:59 PM EDT Hospital Encounter [place] [id number] Rosemary Randolph RVT Right ankle pain, unspecified chronicity; Ulcers of both lower extremities Discharge Disposition: Home Social History Tobacco Use Types Packs/Day Years Used Date Smoking Tobacco: Former Cigarettes Q uit: 02/13/2016 Sex and Gender Information Value Date Recorded Sex Assigned at Not on file Gender Identity Not on file Sexual Orientation Not on file documented as of this encounter Medications at Time of Discharge Medication Sig Dispensed Refills Start Date End Date SUBOXONE 2-0.5 mg Film 0 10/04/2015 oxyCODONE-acetaminophen (PERCOCET) 5-325 mg Tablet TAKE 2 TABLETS BY MOUTH DAILY EVERY 8 HOURS NEEDED FOR SEVERE PAIN DUE TO ANKLE ULCER 0 02/17/2016 sulfamethoxazole-trimet hoprim (BACTRIM DS) 800-160 mg Tablet take 1 tablet by mouth twice a day 0 01/16/2016 traZODone (DESYREL) 50 mg Tablet take 1 tablet by mouth at bedtime 0 02/14/2016 oxyCODONE (ROXICODONE) 10 mg Tablet Take 10 mg by mouth every 6 hours as needed. gabapentin (NEURONTIN) 300 mg Capsule Take 300 mg by mouth 2 times daily. Will increase to 3x/day st. 02/23 ketorolac (TORADOL) 10 mg Tablet Take 10 mg by mouth every 6 hours as needed for Pain. predniSONE (DELTASONE) 10 mg Tablet Take 10 mg by mouth daily. Currently taking 40 mg QD 03/20/2016 documented as of this encounter Plan of Treatment Not on file documented as of this encounter Procedures Procedure Name Priority Date/Time Associated Diagnosis Comments VENOUS VALVULAR INCOMP, BILAT LEGS Routine 02/23/2016 10:21 AM EDT Right ankle pain, unspecified chronicity Ulcers of both lower extremities documented in this encounter Results * Venous Valvular Incomp, Bilat Legs (02/23/2016 10:21 AM EDT) VB Text Report Department: Vascular Surgery Lab Patient: [id number] (SIVA ROSA) CPT: 40199 ICD10: M25.571;L97.929; L97.919 Referring Physician: DYLON SIMPSON ?? Phone: Indications: non healing BLE ulcers [...] database for comparison. Electronically Signed by: DYLON SIMPSON on 2016-02-23 05:01:16 PM VASCUBASE VB Text Report End of Report VASCUBASE 02/23/2016 10:2 1 AM EDT Dylon Simpson MD VASCULAR ORDERA BLES VASCUBASE documented in this encounter Visit Diagnoses Diagnosis Right ankle pain, unspecified chronicity Ulcers of both lower extremities Ulcer of lower limb, unspecified documented in this encounter Care Teams Cloth Boil Off Machine Operator Relationship Specialty Start Date End Date Miguelina Allen MD [address] [place] [address] PCP - General 09/02/13 documented as of this encounter
--- OUTSIDE RECORDS SUMMARY | 2023-12-18 23:54 | XMS_ITS | Encounter Summary ---
Author Organization [facility] [place] [address] Care Team Providers Care Gas Station Supervisor Name Role Phone Miguelina Allen MD Primary Care Provider [phone] Reason for Visit * Reason Comments Skin Check Encounter Details Date Type Department Care Team (Late st Contact Info) Description 03/20/2016 9:45 AM EST Office Visit Dermatology at [address] [place] [address] Edgardo Loera MD [address] [place] [address], [place] [address] Dermatitis Social History Tobacco Use Types Packs/Day Years Used Date Smoking Tobacco: Former Cigarettes Q uit: 02/13/2016 Sex and Gender Information Value Date Recorded Sex Assigned at Not on file Gender Identity Not on file Sexual Orientation Not on file documented as of this encounter Progress Notes * Edgardo Loera MD - 03/20/2016 9:45 AM EST PROBLEM: Right medial ankle ulceration. 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 He states that since starting in November he noted 2 vesicles on the left medial ankle that subsequently broke down into an ulceration and has been very slow to heal ever since. He has had a vascular surgical workup showing good venous return, and he has good pedal pulses. He has been seen by Rheumatology and a workup for rheumatologic disease is ongoing. Vascular Surgery performed a biopsy and this showed no vasculitis. I actually saw the patient in 06/2014, at which time he was noted to have violaceous discoloration over the dorsal MCP and PIP joints of both hands with erythematous inflammatory papules in patches over the dorsal hand as well. 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 He has hyperkeratosis of the soles of both feet. He has a 1 x 2 cm crusting, scabbing ulceration on the right medial ankle which apparently is markedly decreased in size in recent weeks per patient. He has decreased sensation, he states, of the right lower foot and hypesthesia and extreme pain with light manipulation of the foot. He cannot bear weight with his distal right foot. He has violaceous discoloration surrounding the ulceration of his right ankle which is nontender to light palpation. KJ from scaling of his hand was positive for tinea. A/P: Right medial ankle ulceration in a 35-year-old. a. Patient had marked 6-kvlq-4-hand disease and I suspect that this may have somehow played a role with his ulceration. It is difficult to explain, however, his other symptoms. b. Will treat with terbinafine 250 mg 1 p.o. daily for a month. Number 30 will be called in to his [facility] in [facility], 0 refills. c. Check AST and ALT in 1 month. If he is doing well we will call in an additional month and then again after that second month is completed check labs again. If normal would call in a third and final month. d. Patient states that about 2 years he was treated with oral medication for 9-befw-8-hand disease I presume by Dr. Allen. e. Recommend that the patient also use clotrimazole 1% cream applying b.i.d. to hands and feet. Return to clinic in 2 months for repeat check. cc: Giselle Allen MD documented in this encounter Plan of Treatment Not on file documented as of this encounter Visit Diagnoses Diagnosis Dermatitis Contact dermatitis and other eczema, due to unspecified cause documented in this encounter Care Teams Gas Station Supervisor Relationship Specialty Start Date End Date Miguelina Allen MD [address] [place] [address] [address] [place] [address] PCP - General 09/02/13 documented as of this encounter
[2023-12-26 15:53] LABS: Amphetamines Interpretation Positive.; MDA (Ecstasy Metabolite) Negative ng/mL (Cutoff: 25); MDMA (Ecstasy) Negative ng/mL (Cutoff: 25); Methamphetamine Negative ng/mL (Cutoff: 25)
== END 2023-12-18 23:44 | disposition home or self-care (01) ==
LOC: NCHCN 23:43
PROVIDERS: PCP Family Medicine; Visit Provider Family Medicine
DX: F11.20 Opioid dependence, uncomplicated (principal)
CPT/HCPCS: 80324

== ENCOUNTER 2025-02-03 11:29 | Outpatient (CLI) | payer MEDICAID, SELFPAY ==
--- NOTE | 2025-02-03 12:25 | DI.RAD_ITS ---
Exam(s) XR THORACIC SPINE COMPLETE EXAM: XR THORACIC SPINE COMPLETE CLINICAL HISTORY: M54.9 Dorsalgia,mid back pain. TECHNIQUE: 2D digital imaging was performed. COMPARISON: No exams were available for comparison FINDINGS: 3 views No evidence of fracture nor listhesis nor disc space narrowing. No abnormal widening of the paraspinal lines. Minimal thoracic scoliosis noted. Bone density normal. No osseous lesions. IMPRESSION: No significant acute osseous findings in the thoracic spinal column. DATA REPOSITORY: RADIATION DOSE DELIVERED:
--- NOTE | 2025-02-03 12:32 | DI.RAD_ITS ---
Exam(s) XR LUMBAR SPINE COMPLETE EXAM: XR LUMBAR SPINE COMPLETE CLINICAL HISTORY: M54.50 Low back pain, Acute midline low back pain w/o sciatica. TECHNIQUE: 2D digital imaging was performed. COMPARISON: No exams were available for comparison FINDINGS: Five views No evidence of acute fracture, listhesis, nor obvious pars defects. There is advanced disc space narrowing at L5-S1 level and moderate disc space narrowing of L3-4 level, more so on the left than the right side of the disc space.. There is degenerative change in a right L5-S1 facet which appears malleolar in Alas it, probably developmental. Other facet joints appear unremarkable. Sacroiliac joints appear unremarkable. There is mild scoliosis convex right. IMPRESSION: Degenerative disc disease. No acute fractures but there are significant degenerative changes in right-sided facet joint at L5-S1 level. Clinically indicated further study with CT or MRI can be performed. DATA REPOSITORY: RADIATION DOSE DELIVERED:
== END 2025-02-03 11:49 ==
LOC: DI 11:29
PROVIDERS: PCP Family Medicine; Visit Provider Nurse Practitioner Family
DX: M51.360 Other intervertebral disc degeneration, lumbar region with discogenic back pain only (principal)
CPT/HCPCS: 72072; 72110